=== PATIENT | male | born 1980 | race Hispanic/Latino ===

== ENCOUNTER 2018-10-07 17:55 | Inpatient (IN) | payer SELFPAY ==
[2018-10-07] MEDS ORDERED: ATIVAN IM ONE (18:30)
[2018-10-07 18:34] LABS: Basophils # (Auto) 0.1 K/mm3 (0.0-0.1); Basophils % (Auto) 0.9 % (0.0-1.8); Eosinophils # (Auto) 0.1 K/mm3 (0.0-0.4); Eosinophils % (Auto) 0.5 % (0.0-4.3); Hematocrit 48.5 % (35.5-45.6); Hemoglobin 16.2 gm/dl (11.8-15.2); Lymphocytes # (Auto) 2.7 K/mm3 (1.2-5.4); Lymphocytes % (Auto) 23.9 % (13.4-35.0); Mean Corpuscular HGB Conc 33 % (32-34); Mean Corpuscular Volume 88 fl (84-94); Monocytes # (Auto) 0.9 K/mm3 (0.0-0.8); Monocytes % (Auto) 7.9 % (0.0-7.3); Red Blood Count 5.49 M/mm3 (3.65-5.03); Red Cell Distribution Width 14.2 % (13.2-15.2)
[2018-10-07] MEDS ORDERED: ATIVAN ONE (18:47)
[2018-10-07 18:48] LABS: BUN/Creatinine Ratio 15; Blood Urea Nitrogen 18 mg/dL (9-20); Calcium 9.9 mg/dL (8.4-10.2); Hemolysis Index 29
[2018-10-07 19:23] LABS: Platelet Count 358 K/mm3 (140-440)
[2018-10-07] MEDS ORDERED: GEODON IM ONE (19:43)
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
[2018-10-07 20:25] LABS: Bilirubin,Urine NEG (Negative); Blood,Urine SM (Negative); Color,Urine Amber (Yellow); Hyaline Casts,Urine 1 /LPF; Mucus,Urine 2+ /HPF
[2018-10-07 20:31] LABS: Amphetamine Screen,Urine PRESUMPTIVE NEGATIVE; Benzodiazepines Screen,Urine PRESUMPTIVE NEGATIVE; Methadone Screen,Urine PRESUMPTIVE NEGATIVE; Opiate Screen,Urine PRESUMPTIVE NEGATIVE
[2018-10-07 20:50] LABS: Cannabinoid Screen,Urine PRESUMPTIVE POSITIVE; Cocaine Screen,Urine PRESUMPTIVE POSITIVE
[2018-10-08] MEDS: THORAZINE IM PRN ×2 (10:47→23:26)
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
[2018-10-08 13:45] LABS: Alanine Aminotransferase 43 units/L (7-56)
[2018-10-08] MEDS: BUSPAR PO SCH ×2 (14:30→22:29)
[2018-10-08] MEDS ORDERED: CATAPRES PO ONE (20:22)
[2018-10-09] MEDS ORDERED: NORVASC PO ONE (01:22)
[2018-10-09] MEDS: IBUPROFEN PO PRN ×2 (01:40→11:06)
[2018-10-09] MEDS ORDERED: ATIVAN IM ONE ×3 (04:02→20:38)
[2018-10-09] MEDS ORDERED: ATIVAN ONE ×3 (04:04→20:34)
[2018-10-09] MEDS ORDERED: GEODON IM ONE ×2 (04:04→20:35)
[2018-10-09] MEDS ORDERED: BENADRYL IM ONE (04:04)
[2018-10-09] MEDS ORDERED: WATER FOR INJ (PF) ONE (04:05)
[2018-10-09] MEDS ORDERED: BENADRYL ONE ×2 (04:07→20:34)
--- NOTE | 2018-10-09 05:20 | Emergency Department Report ---
Blank Doc - Documentation Documentation: Patient agitated, yelling, screaming, banging head against the wall. Patient given sedation with Ativan and Benadryl. Geodon held due to interaction on Thorazine. Patient placed in soft restraints.
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
[2018-10-09] MEDS: BUSPAR PO SCH ×2 (11:06→22:24)
[2018-10-09] MEDS: THORAZINE IM PRN ×2 (11:43→19:42)
[2018-10-09] MEDS ORDERED: THORAZINE IM ONE ×3 (20:38→21:21)
--- NOTE | 2018-10-09 20:44 | Event Note ---
Date: 10/09/18 Patient became acutely agitated and yelling ends screaming. Patient is already in the isolation room. Patient remained in the isolation room. [id number] done. Patient is kicking the door and punching a window. Patient is unable to be redirected in order to calm down. Patient will be given medications. Thorazine 50 mg IM ordered as well as Ativan 2 mg. We'll continue to monitor patient and change treatment as needed.
[2018-10-10] MEDS ORDERED: ATIVAN ONE (03:55)
[2018-10-10] MEDS ORDERED: THORAZINE IM ONE (03:58)
[2018-10-10] MEDS ORDERED: ATIVAN IM ONE (03:58)
[2018-10-10] MEDS ORDERED: GEODON IM ONE (07:50)
[2018-10-10] MEDS ORDERED: NACL 0.9% 1000 ML 1,000 ML IV ONE ×3 (07:51→12:56)
[2018-10-10] MEDS ORDERED: WATER FOR INJ (PF) ONE (07:59)
--- NOTE | 2018-10-10 08:29 | XRay Report ---
FINAL REPORT EXAM: XR CHEST 1V AP HISTORY: hypertension TECHNIQUE: AP portable view(s) of the chest obtained. PRIORS: None. FINDINGS: No mediastinal shift. Cardiac silhouette is not enlarged. No pneumothorax, effusion, or focal pulmona ry opacity identified. No acute skeletal findings. IMPRESSION: No acute pulmonary finding identified.
--- NOTE | 2018-10-10 08:30 | Cat Scan Report ---
FINAL REPORT EXAM: CT HEAD/BRAIN WO CON HISTORY: AMS TECHNIQUE: CT imaging acquired through the head without intravenous contrast. Transaxial reformatio ns are provided. PRIORS: None. FINDINGS: The ventricles, cisterns and sulci are normal. No intraparenchymal or extra-axial mass, hemorrhage, o r mass effect. Reyes and white-matter differentiation is normal. Normal spherical shape of the globes. Paranasal disease is present including complete opacification o f the frontal and left maxillary sinuses. No skull or facial fracture visualized. IMPRESSION: No acute intracranial abnormality. Paranasal sinus disease including complete opacification of the frontal and left maxillary sinuses.
[2018-10-10 09:11] LABS: INR 0.84 (0.87-1.13)
[2018-10-10 09:12] LABS: Partial Thromboplastin Time 26.1 Sec. (24.2-36.6)
[2018-10-10 09:16] LABS: BUN/Creatinine Ratio 11; Blood Urea Nitrogen 9 mg/dL (9-20); Hemolysis Index 12
[2018-10-10 09:17] LABS: Creatine Kinase MB 24.2 ng/mL (0.0-4.0)
[2018-10-10 09:19] LABS: Alanine Aminotransferase 52 units/L (7-56); Albumin 4.2 g/dL (3.9-5)
[2018-10-10 09:23] LABS: Free T4 (Free Thyroxine) 1.54 ng/dL (0.76-1.46)
[2018-10-10 09:26] LABS: Bilirubin,Direct < 0.2 mg/dL (0-0.2)
[2018-10-10 09:35] LABS: Basophils % (Auto) 0.8 % (0.0-1.8); Eosinophils # (Auto) 0.1 K/mm3 (0.0-0.4); Eosinophils % (Auto) 1.4 % (0.0-4.3); Hematocrit 42.3 % (35.5-45.6); Hemoglobin 14.5 gm/dl (11.8-15.2); Lymphocytes # (Auto) 1.5 K/mm3 (1.2-5.4); Lymphocytes % (Auto) 23.7 % (13.4-35.0); Mean Corpuscular HGB Conc 34 % (32-34); Mean Corpuscular Volume 87 fl (84-94); Monocytes # (Auto) 0.4 K/mm3 (0.0-0.8); Monocytes % (Auto) 7.2 % (0.0-7.3); Platelet Count 278 K/mm3 (140-440); Red Blood Count 4.89 M/mm3 (3.65-5.03); Red Cell Distribution Width 13.9 % (13.2-15.2)
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
[2018-10-10] MEDS: BUSPAR PO SCH ×2 (10:00→22:04)
[2018-10-10] MEDS ORDERED: NACL 0.9% 1000 ML 1,000 ML ONE (12:48)
--- NOTE | 2018-10-10 12:55 | History and Physical Report ---
History of Present Illness Date of admission: 10/10/18 12:32 Chief complaint: Im sick brother History of present illness: 38 YO Male with Polysubstance Abuse, Nicotine Dependence, HTN, Bipolar, Schizophrenia, DJD presents to ED for evaluation. PT is confused and exhibits tangential thinking and in unable to provide detailed history. Pt history taken from medical record, and ED staff. As per staff, the patient was transported to [facility] by law Enforcement for evaluation. The patient was observed by his roommate to be confrontational, confused, having hallucinations. Police were notified, an d upon arrival the patient was deemed to be a mental health patient, as was transported to [facility]. Pt seen and evaluated in ED and found to have Psychosis. Mental Health consulted. 1013 placed. Pt boarded in ED, and was subsequently found to have Rhabdomyolysis upon subsequent exam. Pt admitted to medical floor. Psychiatry consulted in ED. No further history obtainable. Past History Past Medical History: hyperthyroidism, other (DJD, PSA, Bipolar, Schizophrenia, ) Past Surgical History: No surgical history, Other Social history: smoking, other (Polysubstance Abuse) Family history: hypertension Medications and Allergies Allergies Allergy/AdvReac Type Severity Reaction Status Date / Time haloperidol [From Haldol] Allergy Hives Verified 10/07/18 19:38 Home Medications Medication Instructions Recorded Confirmed Last Taken Type cloNIDine [Catapres] 0.1 mg PO DAILY 10/07/18 10/07/18 Unknown History Active Meds: Active Medications Buspirone HCl (Buspar) 7.5 mg PO BID [facility] Last Admin: 10/09/18 22:24 Dose: Not Given Documented by: Chlorpromazine HCl (Thorazine) 25 mg IM Q6H PRN PRN Reason: Agitation Last Admin: 10/09/18 19:42 Dose: 25 mg Documented by: Sodium Chloride (Nacl 0.9% 1000 Ml) 1,000 mls @ 999 mls/hr IV BOLUS ONE Stop: 10/10/18 13:00 Ibuprofen (Motrin) 800 mg PO Q8H PRN PRN Reason: Pain , Severe (7-10) Last Admin: 10/09/18 11:06 Dose: 800 mg Documented by: Olanzapine (Zyprexa) 5 mg PO BID [facility] Last Admin: 10/09/18 22:24 Dose: Not Given Documented by: Review of Systems ROS unobtainable: due to mental status Exam - Constitutional Vitals: Temp Pulse Resp BP Pulse Ox 98 F 107 H 20 148/96 96 10/09/18 20:30 10/09/18 20:30 10/09/18 20:30 10/09/18 20:30 10/09/18 20:30 General appearance: Present: mild distress, obese - EENT Eyes: Present: PERRL ENT: hearing intact, clear oral mucosa - Neck Neck: Present: supple, normal ROM - Respiratory Respiratory effort: normal Respiratory: bilateral: CTA - Cardiovascular Heart Sounds: Present: S1 & S2. Absent: rub, click - Extremities Extremities: pulses symmetrical, No edema Peripheral Pulses: within normal limits - Abdominal General gastrointestinal: Present: soft, non-tender, non-distended, normal bowel sounds Male genitourinary: Present: normal - Integumentary Integumentary: Present: clear, warm, dry - Musculoskeletal Musculoskeletal: gait normal, strength equal bilaterally - Psychiatric Psychiatric: no memory intact, cooperative, agitated - Neurologic Neurologic: CNII-XII intact, moves all extremities Results - Labs CBC & Chem 7: 10/10/18 08:22 10/10/18 08:22 Labs: Abnormal lab results 10/10/18 10/10/18 10/10/18 Range/Units 08:22 08:22 08:22 PT 11.9 L (12.2-14.9) Sec. INR 0.84 L (0.87-1.13) Potassium 3.4 L (3.6-5.0) mmol/L Glucose 124 H (75-100) mg/dL AST 110 H (5-40) units/L Total Creatine Kinase 4604 H (55-170) units/L CK-MB (CK-2) 24.2 H (0.0-4.0) ng/mL Free T4 (0.76-1.46) ng/dL Acetaminophen (10.0-30.0) ug/mL 10/10/18 10/10/18 Range/Units 08:22 08:22 PT (12.2-14.9) Sec. INR (0.87-1.13) Potassium (3.6-5.0) mmol/L Glucose (75-100) mg/dL AST (5-40) units/L Total Creatine Kinase (55-170) units/L CK-MB (CK-2) (0.0-4.0) ng/mL Free T4 1.54 H (0.76-1.46) ng/dL Acetaminophen < 5.0 L (10.0-30.0) ug/mL Assessment and Plan - Patient Problems (1) Rhabdomyolysis Current Visit: Yes Status: Acute Qualifiers: Encounter type: initial encounter Plan to address problem: IVF resuscitation, monitor uop q shift, IV bicarbonate, repeat bmp, repeat CK level, (2) Polysubstance (excluding opioids) dependence Current Visit: Yes Status: Acute Plan to address problem: Supportive care, symptoms management, antiemetic therapy, diet as tolerated. (3) Acute psychosis Current Visit: Yes Status: Acute Plan to address problem: mental health consulted, continue current therapy as per psych recommendations. (4) Nicotine dependence with withdrawal Current Visit: Yes Status: Acute Qualifiers: Nicotine product type: cigarettes Qualified Code(s): F17.213 - Nicotine dependence, cigarettes, with withdrawal Plan to address problem: nicotine transdermal patch, supportive care. (5) Bipolar 1 disorder with moderate rick Current Visit: Yes Status: Acute Plan to address problem: psychiatry consulted, continue medical management (6) DVT prophylaxis Current Visit: Yes Status: Acute Plan to address problem: SCD to BLE while in bed.
[2018-10-10] MEDS ORDERED: SODIUM CHLORIDE FLUSH SYRINGE 10 ML IV PRN (13:02)
[2018-10-10] MEDS ORDERED: ZOFRAN IV PRN (13:02)
[2018-10-10] MEDS ORDERED: PROVENTIL IH PRN (13:02)
[2018-10-10] MEDS: HABITROL TD SCH (17:00)
[2018-10-10] MEDS ORDERED: IBUPROFEN ONE (18:07)
[2018-10-10] MEDS: IBUPROFEN PO PRN (18:08)
[2018-10-10] MEDS: SODIUM CHLORIDE FLUSH SYRINGE 10 ML IV SCH (22:04)
[2018-10-10] MEDS: NACL 0.9% 1000 ML 1,000 ML IV SCH (22:13)
[2018-10-11] MEDS: LIDODERM 5% TD SCH ×2 (00:59→21:30)
[2018-10-11] MEDS: PEPCID PO SCH ×3 (01:55→21:30)
[2018-10-11] MEDS: IBUPROFEN PO PRN ×2 (03:24→11:13)
[2018-10-11] MEDS: ATIVAN IV PRN ×4 (04:13→21:30)
[2018-10-11] MEDS: HABITROL TD SCH (09:33)
[2018-10-11] MEDS: BUSPAR PO SCH ×2 (09:33→21:30)
[2018-10-11] MEDS: CATAPRES PO SCH (09:35)
[2018-10-11] MEDS: SODIUM CHLORIDE FLUSH SYRINGE 10 ML IV SCH ×2 (09:36→23:02)
[2018-10-11 10:40] LABS: BUN/Creatinine Ratio 10; Blood Urea Nitrogen 7 mg/dL (9-20); Calcium 8.6 mg/dL (8.4-10.2); Hemolysis Index 4
--- NOTE | 2018-10-11 18:41 | Progress Note ---
Assessment and Plan Assessment and plan: --Rhabdomyolysis; Vigorous IV hydration, closely monitor renal function and CK levels Input and output monitoring --Acute psychosis; management per psychiatric 1013 status/safety spec --Polysubstance abuse; supportive care Watch for withdrawal symptoms, patient adv drug rehabilitation once medically stable --Tobacco use; smoking cessation advised, nicotine patch as needed --Bipolar disorder; management per psychiatric, side following --DVT prophylaxis; SCDs -- 1013 --Disposition; patient will be transferred to inpatient psych when medically stable Plan of care reviewed with the patient's nurse and case management History Interval history: Patient seen and examined medical records reviewed Patient is admitted with acute psychosis, rhabdomyolysis, 1013 status Patient patient is agitated, aggressive, had to call security At the time of my evaluation patient is calm and quiet Vital signs reviewed Patient has no complaints Hospitalist Physical - Constitutional Vitals: Temp Pulse Resp BP Pulse Ox 97.1 F L 95 H 20 165/76 96 10/11/18 12:00 10/11/18 12:00 10/11/18 12:00 10/11/18 12:00 10/11/18 12:15 General appearance: Present: mild distress, obese, other (agitated) - EENT Eyes: Present: PERRL, EOM intact - Neck Neck: Present: supple, normal ROM - Respiratory Respiratory effort: normal Respiratory: negative: rales, rhonchi, wheezing - Cardiovascular Rhythm: regular Heart Sounds: Present: S1 & S2 - Extremities Extremities: no ischemia, pulses intact - Abdominal General gastrointestinal: soft, non-tender, non-distended, normal bowel sounds - Integumentary Integumentary: Present: clear, warm - Psychiatric Psychiatric: agitated, other (sometimes aggressive) - Neurologic Neurologic: moves all extremities Results - Labs CBC & Chem 7: 10/10/18 08:22 10/11/18 09:51 Labs: Laboratory Last Values WBC 6.1 K/mm3 (4.5-11.0) 10/10/18 08:22 RBC 4.89 M/mm3 (3.65-5.03) 10/10/18 08:22 Hgb 14.5 gm/dl (11.8-15.2) 10/10/18 08:22 Hct 42.3 % (35.5-45.6) D 10/10/18 08:22 MCV 87 fl (84-94) 10/10/18 08:22 MCH 30 pg (28-32) 10/10/18 08:22 MCHC 34 % (32-34) 10/10/18 08:22 RDW 13.9 % (13.2-15.2) 10/10/18 08:22 Plt Count 278 K/mm3 (140-440) 10/10/18 08:22 Lymph % (Auto) 23.7 % (13.4-35.0) 10/10/18 08:22 [place] % (Auto) 7.2 % (0.0-7.3) 10/10/18 08:22 Eos % (Auto) 1.4 % (0.0-4.3) 10/10/18 08:22 Baso % (Auto) 0.8 % (0.0-1.8) 10/10/18 08:22 Lymph # 1.5 K/mm3 (1.2-5.4) 10/10/18 08:22 [place] # 0.4 K/mm3 (0.0-0.8) 10/10/18 08:22 Eos # 0.1 K/mm3 (0.0-0.4) 10/10/18 08:22 Baso # 0.0 K/mm3 (0.0-0.1) 10/10/18 08:22 Seg Neutrophils % 66.9 % (40.0-70.0) 10/10/18 08:22 Seg Neutrophils # 4.1 K/mm3 (1.8-7.7) 10/10/18 08:22 PT 11.9 Sec. (12.2-14.9) L 10/10/18 08:22 INR 0.84 (0.87-1.13) L 10/10/18 08:22 APTT 26.1 Sec. (24.2-36.6) 10/10/18 08:22 Sodium 143 mmol/L (137-145) 10/11/18 09:51 Potassium 4.3 mmol/L (3.6-5.0) D 10/11/18 09:51 Chloride 107.4 mmol/L (98-107) H 10/11/18 09:51 Carbon Dioxide 23 mmol/L (22-30) 10/11/18 09:51 Anion Gap 17 mmol/L 10/11/18 09:51 BUN 7 mg/dL (9-20) L 10/11/18 09:51 Creatinine 0.7 mg/dL (0.8-1.5) L 10/11/18 09:51 Estimated GFR > 60 ml/min 10/11/18 09:51 BUN/Creatinine Ratio 10 % 10/11/18 09:51 Glucose 113 mg/dL (75-100) H 10/11/18 09:51 Calcium 8.6 mg/dL (8.4-10.2) 10/11/18 09:51 Magnesium 2.20 mg/dL (1.7-2.3) 10/10/18 08:22 Total Bilirubin 0.80 mg/dL (0.1-1.2) 10/10/18 08:22 Direct Bilirubin < 0.2 mg/dL (0-0.2) 10/10/18 08:22 Indirect Bilirubin 0.6 mg/dL 10/10/18 08:22 AST 110 units/L (5-40) H 10/10/18 08:22 ALT 52 units/L (7-56) 10/10/18 08:22 Alkaline Phosphatase 68 units/L (35-129) 10/10/18 08:22 Total Creatine Kinase 2494 units/L (55-170) H 10/11/18 09:51 CK-MB (CK-2) 24.2 ng/mL (0.0-4.0) H 10/10/18 08:22 CK-MB (CK-2) Rel Index 0.5 (0-4) 10/10/18 08:22 Troponin T < 0.010 ng/mL (0.00-0.029) 10/10/18 08:22 NT-Pro-B Natriuret Pep 83.40 pg/mL (0-450) 10/10/18 08:22 Total Protein 6.9 g/dL (6.3-8.2) 10/10/18 08:22 Albumin 4.2 g/dL (3.9-5) 10/10/18 08:22 Albumin/Globulin Ratio 1.6 % 10/10/18 08:22 Amylase 41 units/L (27-131) 10/08/18 13:12 Lipase 45 units/L (13-60) 10/08/18 13:12 TSH 1.010 mlU/mL (0.270-4.200) 10/10/18 08:22 Free T4 1.54 ng/dL (0.76-1.46) H 10/10/18 08:22 Urine Color [place] (Yellow) 10/07/18 20:15 Urine Turbidity Slightly-cloudy (Clear) 10/07/18 20:15 Urine pH 5.0 (5.0-7.0) 10/07/18 20:15 Ur Specific [place] 1.030 (1.003-1.030) 10/07/18 20:15 Urine Protein 30 mg/dl mg/dL (Negative) 10/07/18 20:15 Urine Glucose (UA) Neg mg/dL (Negative) 10/07/18 20:15 Urine Ketones Neg mg/dL (Negative) 10/07/18 20:15 Urine Blood Sm (Negative) 10/07/18 20:15 Urine Nitrite Neg (Negative) 10/07/18 20:15 Urine Bilirubin Neg (Negative) 10/07/18 20:15 Urine Urobilinogen 2.0 mg/dL (<2.0) 10/07/18 20:15 Ur Leukocyte Esterase Neg (Negative) 10/07/18 20:15 Urine WBC (Auto) 2.0 /HPF (0.0-6.0) 10/07/18 20:15 Urine RBC (Auto) 14.0 /HPF (0.0-6.0) 10/07/18 20:15 U Epithel Cells (Auto) < 1.0 /HPF (0-13.0) 10/07/18 20:15 Hyaline Casts 1 /LPF 10/07/18 20:15 Urine Mucus 2+ /HPF 10/07/18 20:15 Salicylates 7.7 mg/dL (2.8-20.0) 10/07/18 Unknown Urine Opiates Screen Presumptive negative 10/07/18 20:15 Urine Methadone Screen Presumptive negative 10/07/18 20:15 Acetaminophen < 5.0 ug/mL (10.0-30.0) L 10/10/18 08:22 Ur Barbiturates Screen Presumptive negative 10/07/18 20:15 Valproic Acid < 2.8 ug/mL (50-100) L 10/08/18 13:12 Ur Phencyclidine Scrn Presumptive negative 10/07/18 20:15 Ur Amphetamines Screen Presumptive negative 10/07/18 20:15 U Benzodiazepines Scrn Presumptive negative 10/07/18 20:15 Urine Cocaine Screen Presumptive positive 10/07/18 20:15 U Marijuana (THC) Screen Presumptive positive 10/07/18 20:15 Drugs of Abuse Note Disclamer 10/07/18 20:15 Plasma/Serum Alcohol < 0.01 % (0-0.07) 10/07/18 18:19 Nutrition/Malnutrition Assess - Dietary Evaluation Nutrition/Malnutrition Findings: Nutrition Notes Start: 10/11/18 15:31 Freq: Status: Active Protocol: Document 10/11/18 15:31 RM (Rec: 10/11/18 15:37 RM [id number]) Nutrition Notes Need for Assessment generated from: relay technician MST Initial or Follow up Brief Note Current Diagnosis Hypertension Other Pertinent Diagnosis Polysubstance abuse, Bipolar, Schizophrenia, hyperthyroidism , DJD Current Diet Regular Labs/Tests Reviewed Pertinent Medications Reviewed Height 6 ft Weight 146 kg [place] Body Weight (kg) 80.90 BMI 43.6 Subjective/Other Information Screened for malnutrition. Pt agitated,cursing, and yelling per nurse note 10/11/18 . Pt tech stated that pt eats 100% of his meals. Burn Absent Trauma Absent Nutrition Intervention Follow-Up By: 10/13/18 Additional Comments Follow for confirmation of intakes/stable intakes
[2018-10-12] MEDS: IBUPROFEN PO PRN (03:49)
[2018-10-12] MEDS: ATIVAN IV PRN ×3 (06:36→21:10)
[2018-10-12] MEDS: NACL 0.9% 1000 ML 1,000 ML IV SCH ×3 (09:41→23:12)
[2018-10-12] MEDS: BUSPAR PO SCH (09:42)
[2018-10-12] MEDS: HABITROL TD SCH (09:43)
[2018-10-12] MEDS: PEPCID PO SCH ×2 (09:45→21:10)
[2018-10-12] MEDS: CATAPRES PO SCH (09:45)
[2018-10-12] MEDS: SODIUM CHLORIDE FLUSH SYRINGE 10 ML IV SCH ×2 (09:52→21:11)
--- NOTE | 2018-10-12 10:07 | Progress Note ---
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 --Polysubstance abuse; supportive care Monitor for withdrawal symptoms, patient needs drug rehabilitation once medically stable --Tobacco use; smoking cessation advised, nicotine patch as needed --Bipolar disorder; management per psychiatric, side following --DVT prophylaxis; SCDs -- 1013 Patient is medically stable for discharge Disposition per psych, possible transfer to inpatient psych facility for further evaluation and management History Interval history: Patient seen and examined medical records reviewed No new events reported by the nursing Patient is calm and quiet sleeping No agitation or aggression 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 Vital signs noted Hospitalist Physical - Constitutional Vitals: Temp Pulse Resp BP Pulse Ox 98.5 F 84 18 131/76 97 10/12/18 05:20 10/12/18 09:45 10/12/18 05:20 10/12/18 09:45 10/12/18 05:20 General appearance: Present: no acute distress, obese, other (agitated) - EENT Eyes: Present: PERRL, EOM intact - Neck Neck: Present: supple, normal ROM - Respiratory Respiratory effort: normal Respiratory: bilateral: diminished, rales, negative: rhonchi, wheezing - Cardiovascular Rhythm: regular Heart Sounds: Present: S1 & S2 - Extremities Extremities: no ischemia, No edema - Abdominal General gastrointestinal: soft, non-tender, non-distended, normal bowel sounds - Integumentary Integumentary: Present: clear, warm - Psychiatric Psychiatric: appropriate mood/affect, cooperative - Neurologic Neurologic: moves all extremities Results - Labs CBC & Chem 7: 10/10/18 08:22 10/11/18 09:51 Labs: Laboratory Last Values WBC 6.1 K/mm3 (4.5-11.0) 10/10/18 08:22 RBC 4.89 M/mm3 (3.65-5.03) 10/10/18 08:22 Hgb 14.5 gm/dl (11.8-15.2) 10/10/18 08:22 Hct 42.3 % (35.5-45.6) D 10/10/18 08:22 MCV 87 fl (84-94) 10/10/18 08:22 MCH 30 pg (28-32) 10/10/18 08:22 MCHC 34 % (32-34) 10/10/18 08:22 RDW 13.9 % (13.2-15.2) 10/10/18 08:22 Plt Count 278 K/mm3 (140-440) 10/10/18 08:22 Lymph % (Auto) 23.7 % (13.4-35.0) 10/10/18 08:22 [place] % (Auto) 7.2 % (0.0-7.3) 10/10/18 08:22 Eos % (Auto) 1.4 % (0.0-4.3) 10/10/18 08:22 Baso % (Auto) 0.8 % (0.0-1.8) 10/10/18 08:22 Lymph # 1.5 K/mm3 (1.2-5.4) 10/10/18 08:22 [place] # 0.4 K/mm3 (0.0-0.8) 10/10/18 08:22 Eos # 0.1 K/mm3 (0.0-0.4) 10/10/18 08:22 Baso # 0.0 K/mm3 (0.0-0.1) 10/10/18 08:22 Seg Neutrophils % 66.9 % (40.0-70.0) 10/10/18 08:22 Seg Neutrophils # 4.1 K/mm3 (1.8-7.7) 10/10/18 08:22 PT 11.9 Sec. (12.2-14.9) L 10/10/18 08:22 INR 0.84 (0.87-1.13) L 10/10/18 08:22 APTT 26.1 Sec. (24.2-36.6) 10/10/18 08:22 Sodium 143 mmol/L (137-145) 10/11/18 09:51 Potassium 4.3 mmol/L (3.6-5.0) D 10/11/18 09:51 Chloride 107.4 mmol/L (98-107) H 10/11/18 09:51 Carbon Dioxide 23 mmol/L (22-30) 10/11/18 09:51 Anion Gap 17 mmol/L 10/11/18 09:51 BUN 7 mg/dL (9-20) L 10/11/18 09:51 Creatinine 0.7 mg/dL (0.8-1.5) L 10/11/18 09:51 Estimated GFR > 60 ml/min 10/11/18 09:51 BUN/Creatinine Ratio 10 % 10/11/18 09:51 Glucose 113 mg/dL (75-100) H 10/11/18 09:51 Calcium 8.6 mg/dL (8.4-10.2) 10/11/18 09:51 Magnesium 2.20 mg/dL (1.7-2.3) 10/10/18 08:22 Total Bilirubin 0.80 mg/dL (0.1-1.2) 10/10/18 08:22 Direct Bilirubin < 0.2 mg/dL (0-0.2) 10/10/18 08:22 Indirect Bilirubin 0.6 mg/dL 10/10/18 08:22 AST 110 units/L (5-40) H 10/10/18 08:22 ALT 52 units/L (7-56) 10/10/18 08:22 Alkaline Phosphatase 68 units/L (35-129) 10/10/18 08:22 Total Creatine Kinase 1110 units/L (55-170) H 10/12/18 08:28 CK-MB (CK-2) 24.2 ng/mL (0.0-4.0) H 10/10/18 08:22 CK-MB (CK-2) Rel Index 0.5 (0-4) 10/10/18 08:22 Troponin T < 0.010 ng/mL (0.00-0.029) 10/10/18 08:22 NT-Pro-B Natriuret Pep 83.40 pg/mL (0-450) 10/10/18 08:22 Total Protein 6.9 g/dL (6.3-8.2) 10/10/18 08:22 Albumin 4.2 g/dL (3.9-5) 10/10/18 08:22 Albumin/Globulin Ratio 1.6 % 10/10/18 08:22 Amylase 41 units/L (27-131) 10/08/18 13:12 Lipase 45 units/L (13-60) 10/08/18 13:12 TSH 1.010 mlU/mL (0.270-4.200) 10/10/18 08:22 Free T4 1.54 ng/dL (0.76-1.46) H 10/10/18 08:22 Urine Color [place] (Yellow) 10/07/18 20:15 Urine Turbidity Slightly-cloudy (Clear) 10/07/18 20:15 Urine pH 5.0 (5.0-7.0) 10/07/18 20:15 Ur Specific [place] 1.030 (1.003-1.030) 10/07/18 20:15 Urine Protein 30 mg/dl mg/dL (Negative) 10/07/18 20:15 Urine Glucose (UA) Neg mg/dL (Negative) 10/07/18 20:15 Urine Ketones Neg mg/dL (Negative) 10/07/18 20:15 Urine Blood Sm (Negative) 10/07/18 20:15 Urine Nitrite Neg (Negative) 10/07/18 20:15 Urine Bilirubin Neg (Negative) 10/07/18 20:15 Urine Urobilinogen 2.0 mg/dL (<2.0) 10/07/18 20:15 Ur Leukocyte Esterase Neg (Negative) 10/07/18 20:15 Urine WBC (Auto) 2.0 /HPF (0.0-6.0) 10/07/18 20:15 Urine RBC (Auto) 14.0 /HPF (0.0-6.0) 10/07/18 20:15 U Epithel Cells (Auto) < 1.0 /HPF (0-13.0) 10/07/18 20:15 Hyaline Casts 1 /LPF 10/07/18 20:15 Urine Mucus 2+ /HPF 10/07/18 20:15 Salicylates 7.7 mg/dL (2.8-20.0) 10/07/18 Unknown Urine Opiates Screen Presumptive negative 10/07/18 20:15 Urine Methadone Screen Presumptive negative 10/07/18 20:15 Acetaminophen < 5.0 ug/mL (10.0-30.0) L 10/10/18 08:22 Ur Barbiturates Screen Presumptive negative 10/07/18 20:15 Valproic Acid < 2.8 ug/mL (50-100) L 10/08/18 13:12 Ur Phencyclidine Scrn Presumptive negative 10/07/18 20:15 Ur Amphetamines Screen Presumptive negative 10/07/18 20:15 U Benzodiazepines Scrn Presumptive negative 10/07/18 20:15 Urine Cocaine Screen Presumptive positive 10/07/18 20:15 U Marijuana (THC) Screen Presumptive positive 10/07/18 20:15 Drugs of Abuse Note Disclamer 10/07/18 20:15 Plasma/Serum Alcohol < 0.01 % (0-0.07) 10/07/18 18:19 Nutrition/Malnutrition Assess - Dietary Evaluation Nutrition/Malnutrition Findings: Nutrition Notes Start: 10/11/18 15:31 Freq: Status: Active Protocol: Document 10/11/18 15:31 RM (Rec: 10/11/18 15:37 RM [id number]) Nutrition Notes Need for Assessment 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 Pt agitated,cursing, and yelling per nurse note 10/11/18 . Pt tech stated that pt eats 100% of his meals. Burn Absent Trauma Absent Nutrition Intervention Follow-Up By: 10/13/18 Additional Comments Follow for confirmation of intakes/stable intakes
--- NOTE | 2018-10-12 12:56 | Progress Note ---
Subjective - Reason for Consult Consult date: 10/12/18 Reason for consult: Psychiatry Follow-up - Chief Complaint Chief complaint: "I need to speak with everyone" 38-year-old male presents to the emergency department via police from his home for a mental health evaluation. Today the patient is tangent during the assessment. He continues to be hyper religion and his answers to questions are not logical. He denies SI/HI's and AVH's. No indications of side effects of medications. Mental Status Exam - Vital signs Last Vital Signs Temp 97.7 F 10/12/18 12:45 Pulse 84 10/12/18 12:45 Resp 20 10/12/18 12:45 BP 136/69 10/12/18 12:45 Pulse Ox 100 10/12/18 12:45 - Exam Narrative exam: MSE: Appearance: in a hospital gown Behavior: regular eye contact Speech: hyper verbal Mood: "okay" Affect: congruent to mood Thought Process: tangential Thought Content: denies SI/Hi's, delusional, hyper religion Motor Activity: sitting up in bed Cognition: A/O x 3 Insight: poor Judgment: poor Impression: Unspecified Mood DO with psy features. Substance Use DO (cocaine). Cannabis Use DO. Today the patient is calm, but still disorganized during the assessment. The patient is i n restraints. DDx: Bipolar DO with psychosis, Schizoaffective DO, Substance Induced M ood/Psychotic DO, R/O Anxiety DO. Recommendation/Plan: Continue 1013, Klonpin 0.5 mg PO BID for anxiety and start Zyprexa 5 mg PO BID for psychosis/mood. Attempted to discuss possible metabolic side effects of Zyprexa with the patient. Dispo: The patient will be referred to inpatient psy services once medically clear. Will staff with Dr Radha Paredes.
[2018-10-12] MEDS: LIDODERM 5% TD SCH (21:10)
[2018-10-13] MEDS: ATIVAN IV PRN ×4 (05:31→18:39)
[2018-10-13] MEDS: TYLENOL PO PRN ×2 (08:43→21:18)
[2018-10-13] MEDS: HABITROL TD SCH (10:52)
[2018-10-13] MEDS: CATAPRES PO SCH (10:52)
[2018-10-13] MEDS: PEPCID PO SCH ×2 (10:53→21:11)
[2018-10-13] MEDS: SODIUM CHLORIDE FLUSH SYRINGE 10 ML IV SCH ×2 (10:54→21:12)
--- NOTE | 2018-10-13 11:04 | Progress Note ---
Subjective - Reason for Consult Consult date: 10/13/18 Reason for consult: Psychiatry Follow-up - Chief Complaint Chief complaint: "I need to leave" 38-year-old male presents to the emergency department via police from his home for a mental health evaluation. Today the patient is irritable and disorganized during the assessment. He is adamant that his elevated CK is the reason he's a 1013 patient. I the provider explained to the patient why he is a 1013 patient he stated, "That's not true." The patient had to be redirected several times to keep him on topic, but was unsuccessful. No gestures of SI/HI's. No indications of side effects of medications. Mental Status Exam - Vital signs Last Vital Signs Temp 97.8 F 10/13/18 05:42 Pulse 85 10/13/18 10:52 Resp 20 10/13/18 08:50 BP 168/99 10/13/18 10:52 Pulse Ox 97 10/13/18 08:50 - Exam Narrative exam: MSE: Appearance: in a hospital gown Behavior: regular eye contact Speech: hyper verbal Mood: agitated Affect: congruent to mood Thought Process: tangential Thought Content: no gestures of SI/Hi's, delusional, hyper church Motor Activity: sitting up in bed Cognition: A/O x 3 Insight: poor Judgment: poor Assessment and Plan Impression: Unspecified Mood DO with psy features. Substance Use DO (cocaine). Cannabis Use DO. Today the patient is irritable and disorganized during the assessment. DDx: Bipolar DO with psychosis, Schizoaffective DO, Substance Induced Mood/Psychotic DO, R/O Anxiety DO. Recommendation/Plan: Continue 1013, Klonopin 0.5 mg PO BID for anxiety, and Zyprexa 5 mg PO BID for psychosis/mood. Attempted to discuss possible metabolic side effects of Zyprexa with the patient. Dispo: The patient will be referred to inpatient psy services once medically clear. Will staff with Dr Sidney Paredes.
--- NOTE | 2018-10-13 19:37 | Progress Note ---
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 --Polysubstance abuse; supportive care Monitor for withdrawal symptoms, patient needs drug rehabilitation once medically stable --Tobacco use; smoking cessation advised, nicotine patch as needed --Bipolar disorder; management per psychiatric, side following --DVT prophylaxis; SCDs -- 1013 Disposition per psych, possible transfer to inpatient psych facility for further evaluation and management Patient is medically cleared for discharge History Interval history: Patient seen and examined medical records reviewed Patient feels slightly better, CK level is in 400s Alert awake oriented 3, not in distress Vitals noted 1013 status Hospitalist Physical - Constitutional Vitals: Temp Pulse Resp BP Pulse Ox 98.7 F 99 H 18 159/92 96 10/13/18 14:00 10/13/18 14:07 10/13/18 14:00 10/13/18 14:00 10/13/18 14:07 General appearance: Present: no acute distress, obese, other (agitated) - EENT Eyes: Present: PERRL, EOM intact - Neck Neck: Present: supple, normal ROM - Respiratory Respiratory effort: normal Respiratory: negative: rales, rhonchi, wheezing - Cardiovascular Rhythm: regular Heart Sounds: Present: S1 & S2 - Extremities Extremities: no ischemia, No edema - Abdominal General gastrointestinal: soft, non-distended, normal bowel sounds - Integumentary Integumentary: Present: clear, warm - Psychiatric Psychiatric: appropriate mood/affect, cooperative, agitated (at times), other ( sometimes psychotic) - Neurologic Neurologic: moves all extremities Results - Labs CBC & Chem 7: 10/10/18 08:22 10/11/18 09:51 Labs: Laboratory Last Values WBC 6.1 K/mm3 (4.5-11.0) 10/10/18 08:22 RBC 4.89 M/mm3 (3.65-5.03) 10/10/18 08:22 Hgb 14.5 gm/dl (11.8-15.2) 10/10/18 08:22 Hct 42.3 % (35.5-45.6) D 10/10/18 08:22 MCV 87 fl (84-94) 10/10/18 08:22 MCH 30 pg (28-32) 10/10/18 08:22 MCHC 34 % (32-34) 10/10/18 08:22 RDW 13.9 % (13.2-15.2) 10/10/18 08:22 Plt Count 278 K/mm3 (140-440) 10/10/18 08:22 Lymph % (Auto) 23.7 % (13.4-35.0) 10/10/18 08:22 [place] % (Auto) 7.2 % (0.0-7.3) 10/10/18 08:22 Eos % (Auto) 1.4 % (0.0-4.3) 10/10/18 08:22 Baso % (Auto) 0.8 % (0.0-1.8) 10/10/18 08:22 Lymph # 1.5 K/mm3 (1.2-5.4) 10/10/18 08:22 [place] # 0.4 K/mm3 (0.0-0.8) 10/10/18 08:22 Eos # 0.1 K/mm3 (0.0-0.4) 10/10/18 08:22 Baso # 0.0 K/mm3 (0.0-0.1) 10/10/18 08:22 Seg Neutrophils % 66.9 % (40.0-70.0) 10/10/18 08:22 Seg Neutrophils # 4.1 K/mm3 (1.8-7.7) 10/10/18 08:22 PT 11.9 Sec. (12.2-14.9) L 10/10/18 08:22 INR 0.84 (0.87-1.13) L 10/10/18 08:22 APTT 26.1 Sec. (24.2-36.6) 10/10/18 08:22 Sodium 143 mmol/L (137-145) 10/11/18 09:51 Potassium 4.3 mmol/L (3.6-5.0) D 10/11/18 09:51 Chloride 107.4 mmol/L (98-107) H 10/11/18 09:51 Carbon Dioxide 23 mmol/L (22-30) 10/11/18 09:51 Anion Gap 17 mmol/L 10/11/18 09:51 BUN 7 mg/dL (9-20) L 10/11/18 09:51 Creatinine 0.7 mg/dL (0.8-1.5) L 10/11/18 09:51 Estimated GFR > 60 ml/min 10/11/18 09:51 BUN/Creatinine Ratio 10 % 10/11/18 09:51 Glucose 113 mg/dL (75-100) H 10/11/18 09:51 Calcium 8.6 mg/dL (8.4-10.2) 10/11/18 09:51 Magnesium 2.20 mg/dL (1.7-2.3) 10/10/18 08:22 Total Bilirubin 0.80 mg/dL (0.1-1.2) 10/10/18 08:22 Direct Bilirubin < 0.2 mg/dL (0-0.2) 10/10/18 08:22 Indirect Bilirubin 0.6 mg/dL 10/10/18 08:22 AST 110 units/L (5-40) H 10/10/18 08:22 ALT 52 units/L (7-56) 10/10/18 08:22 Alkaline Phosphatase 68 units/L (35-129) 10/10/18 08:22 Total Creatine Kinase 474 units/L (55-170) H 10/13/18 04:27 CK-MB (CK-2) 24.2 ng/mL (0.0-4.0) H 10/10/18 08:22 CK-MB (CK-2) Rel Index 0.5 (0-4) 10/10/18 08:22 Troponin T < 0.010 ng/mL (0.00-0.029) 10/10/18 08:22 NT-Pro-B Natriuret Pep 83.40 pg/mL (0-450) 10/10/18 08:22 Total Protein 6.9 g/dL (6.3-8.2) 10/10/18 08:22 Albumin 4.2 g/dL (3.9-5) 10/10/18 08:22 Albumin/Globulin Ratio 1.6 % 10/10/18 08:22 Amylase 41 units/L (27-131) 10/08/18 13:12 Lipase 45 units/L (13-60) 10/08/18 13:12 TSH 1.010 mlU/mL (0.270-4.200) 10/10/18 08:22 Free T4 1.54 ng/dL (0.76-1.46) H 10/10/18 08:22 Urine Color [place] (Yellow) 10/07/18 20:15 Urine Turbidity Slightly-cloudy (Clear) 10/07/18 20:15 Urine pH 5.0 (5.0-7.0) 10/07/18 20:15 Ur Specific [place] 1.030 (1.003-1.030) 10/07/18 20:15 Urine Protein 30 mg/dl mg/dL (Negative) 10/07/18 20:15 Urine Glucose (UA) Neg mg/dL (Negative) 10/07/18 20:15 Urine Ketones Neg mg/dL (Negative) 10/07/18 20:15 Urine Blood Sm (Negative) 10/07/18 20:15 Urine Nitrite Neg (Negative) 10/07/18 20:15 Urine Bilirubin Neg (Negative) 10/07/18 20:15 Urine Urobilinogen 2.0 mg/dL (<2.0) 10/07/18 20:15 Ur Leukocyte Esterase Neg (Negative) 10/07/18 20:15 Urine WBC (Auto) 2.0 /HPF (0.0-6.0) 10/07/18 20:15 Urine RBC (Auto) 14.0 /HPF (0.0-6.0) 10/07/18 20:15 U Epithel Cells (Auto) < 1.0 /HPF (0-13.0) 10/07/18 20:15 Hyaline Casts 1 /LPF 10/07/18 20:15 Urine Mucus 2+ /HPF 10/07/18 20:15 Salicylates 7.7 mg/dL (2.8-20.0) 10/07/18 Unknown Urine Opiates Screen Presumptive negative 10/07/18 20:15 Urine Methadone Screen Presumptive negative 10/07/18 20:15 Acetaminophen < 5.0 ug/mL (10.0-30.0) L 10/10/18 08:22 Ur Barbiturates Screen Presumptive negative 10/07/18 20:15 Valproic Acid < 2.8 ug/mL (50-100) L 10/08/18 13:12 Ur Phencyclidine Scrn Presumptive negative 10/07/18 20:15 Ur Amphetamines Screen Presumptive negative 10/07/18 20:15 U Benzodiazepines Scrn Presumptive negative 10/07/18 20:15 Urine Cocaine Screen Presumptive positive 10/07/18 20:15 U Marijuana (THC) Screen Presumptive positive 10/07/18 20:15 Drugs of Abuse Note Disclamer 10/07/18 20:15 Plasma/Serum Alcohol < 0.01 % (0-0.07) 10/07/18 18:19 Nutrition/Malnutrition Assess - Dietary Evaluation Nutrition/Malnutrition Findings: Nutrition Notes Start: 10/11/18 15:31 Freq: Status: Active Protocol: Document 10/13/18 12:32 ER (Rec: 10/13/18 12:36 ER [id number]) Co-Sign 10/13/18 12:32 LP Nutrition Notes Initial or Follow up Brief Note Current Diagnosis Hypertension Other Pertinent Diagnosis Polysubstance abuse, Bipolar, Schizophrenia, hyperthyroidism , DJD Current Diet Regular Labs/Tests Reviewed Pertinent Medications Reviewed Height 6 ft Weight 146 kg [place] Body Weight (kg) 80.90 BMI 43.6 Subjective/Other Information Pt. asking for doctor in hallway. Calmed pt. down and walked pt. back to room. Pt. denies any N/V/D/C or chewing/ swallowing difficulties. Pt. stated he is eating 100% of meals and that he "is a big mina and know how much food he needs to eat." Nutrition Intervention Revisit per MD consult or patient Sign Off request:
[2018-10-13] MEDS: LIDODERM 5% TD SCH (21:12)
[2018-10-14] MEDS: TYLENOL PO PRN ×2 (04:23→18:22)
[2018-10-14] MEDS: ATIVAN IV PRN ×4 (04:24→22:16)
[2018-10-14] MEDS: IBUPROFEN PO PRN ×3 (06:11→22:13)
--- NOTE | 2018-10-14 09:31 | Progress Note ---
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, patient is calm and quiet today --Polysubstance abuse; no withdrawal symptoms, patient needs drug rehabilitation outpatient --Tobacco use; smoking cessation advised, nicotine patch as needed --Bipolar disorder; management per psychiatric, --DVT prophylaxis; SCDs -- 1013 Disposition per psych, possible transfer to inpatient psych facility for further evaluation and management Patient is medically cleared for discharge History Interval history: Patient seen and examined medical records reviewed Patient is calm and quiet today, no agitation or aggression CK levels significantly improved to 274 Alert awake oriented 3 Vital signs noted Hospitalist Physical - Constitutional Vitals: Temp Pulse Resp BP Pulse Ox 98.7 F 99 H 18 159/92 96 10/13/18 14:00 10/13/18 14:07 10/13/18 14:00 10/13/18 14:00 10/13/18 14:07 General appearance: Present: no acute distress, obese, other (Nataliya.) - EENT Eyes: Present: PERRL - Neck Neck: Present: supple, normal ROM - Respiratory Respiratory effort: normal Respiratory: negative: rales, rhonchi, wheezing - Cardiovascular Rhythm: regular Heart Sounds: Present: S1 & S2 - Extremities Extremities: no ischemia, No edema - Abdominal General gastrointestinal: soft, non-tender, non-distended, normal bowel sounds - Integumentary Integumentary: Present: clear, warm - Psychiatric Psychiatric: appropriate mood/affect, cooperative - Neurologic Neurologic: CNII-XII intact, moves all extremities Results - Labs CBC & Chem 7: 10/10/18 08:22 10/11/18 09:51 Labs: Laboratory Last Values WBC 6.1 K/mm3 (4.5-11.0) 10/10/18 08:22 RBC 4.89 M/mm3 (3.65-5.03) 10/10/18 08:22 Hgb 14.5 gm/dl (11.8-15.2) 10/10/18 08:22 Hct 42.3 % (35.5-45.6) D 10/10/18 08:22 MCV 87 fl (84-94) 10/10/18 08:22 MCH 30 pg (28-32) 10/10/18 08:22 MCHC 34 % (32-34) 10/10/18 08:22 RDW 13.9 % (13.2-15.2) 10/10/18 08:22 Plt Count 278 K/mm3 (140-440) 10/10/18 08:22 Lymph % (Auto) 23.7 % (13.4-35.0) 10/10/18 08:22 [place] % (Auto) 7.2 % (0.0-7.3) 10/10/18 08:22 Eos % (Auto) 1.4 % (0.0-4.3) 10/10/18 08:22 Baso % (Auto) 0.8 % (0.0-1.8) 10/10/18 08:22 Lymph # 1.5 K/mm3 (1.2-5.4) 10/10/18 08:22 [place] # 0.4 K/mm3 (0.0-0.8) 10/10/18 08:22 Eos # 0.1 K/mm3 (0.0-0.4) 10/10/18 08:22 Baso # 0.0 K/mm3 (0.0-0.1) 10/10/18 08:22 Seg Neutrophils % 66.9 % (40.0-70.0) 10/10/18 08:22 Seg Neutrophils # 4.1 K/mm3 (1.8-7.7) 10/10/18 08:22 PT 11.9 Sec. (12.2-14.9) L 10/10/18 08:22 INR 0.84 (0.87-1.13) L 10/10/18 08:22 APTT 26.1 Sec. (24.2-36.6) 10/10/18 08:22 Sodium 143 mmol/L (137-145) 10/11/18 09:51 Potassium 4.3 mmol/L (3.6-5.0) D 10/11/18 09:51 Chloride 107.4 mmol/L (98-107) H 10/11/18 09:51 Carbon Dioxide 23 mmol/L (22-30) 10/11/18 09:51 Anion Gap 17 mmol/L 10/11/18 09:51 BUN 7 mg/dL (9-20) L 10/11/18 09:51 Creatinine 0.7 mg/dL (0.8-1.5) L 10/11/18 09:51 Estimated GFR > 60 ml/min 10/11/18 09:51 BUN/Creatinine Ratio 10 % 10/11/18 09:51 Glucose 113 mg/dL (75-100) H 10/11/18 09:51 Calcium 8.6 mg/dL (8.4-10.2) 10/11/18 09:51 Magnesium 2.20 mg/dL (1.7-2.3) 10/10/18 08:22 Total Bilirubin 0.80 mg/dL (0.1-1.2) 10/10/18 08:22 Direct Bilirubin < 0.2 mg/dL (0-0.2) 10/10/18 08:22 Indirect Bilirubin 0.6 mg/dL 10/10/18 08:22 AST 110 units/L (5-40) H 10/10/18 08:22 ALT 52 units/L (7-56) 10/10/18 08:22 Alkaline Phosphatase 68 units/L (35-129) 10/10/18 08:22 Total Creatine Kinase 275 units/L (55-170) H 10/14/18 06:36 CK-MB (CK-2) 24.2 ng/mL (0.0-4.0) H 10/10/18 08:22 CK-MB (CK-2) Rel Index 0.5 (0-4) 10/10/18 08:22 Troponin T < 0.010 ng/mL (0.00-0.029) 10/10/18 08:22 NT-Pro-B Natriuret Pep 83.40 pg/mL (0-450) 10/10/18 08:22 Total Protein 6.9 g/dL (6.3-8.2) 10/10/18 08:22 Albumin 4.2 g/dL (3.9-5) 10/10/18 08:22 Albumin/Globulin Ratio 1.6 % 10/10/18 08:22 Amylase 41 units/L (27-131) 10/08/18 13:12 Lipase 45 units/L (13-60) 10/08/18 13:12 TSH 1.010 mlU/mL (0.270-4.200) 10/10/18 08:22 Free T4 1.54 ng/dL (0.76-1.46) H 10/10/18 08:22 Urine Color [place] (Yellow) 10/07/18 20:15 Urine Turbidity Slightly-cloudy (Clear) 10/07/18 20:15 Urine pH 5.0 (5.0-7.0) 10/07/18 20:15 Ur Specific [place] 1.030 (1.003-1.030) 10/07/18 20:15 Urine Protein 30 mg/dl mg/dL (Negative) 10/07/18 20:15 Urine Glucose (UA) Neg mg/dL (Negative) 10/07/18 20:15 Urine Ketones Neg mg/dL (Negative) 10/07/18 20:15 Urine Blood Sm (Negative) 10/07/18 20:15 Urine Nitrite Neg (Negative) 10/07/18 20:15 Urine Bilirubin Neg (Negative) 10/07/18 20:15 Urine Urobilinogen 2.0 mg/dL (<2.0) 10/07/18 20:15 Ur Leukocyte Esterase Neg (Negative) 10/07/18 20:15 Urine WBC (Auto) 2.0 /HPF (0.0-6.0) 10/07/18 20:15 Urine RBC (Auto) 14.0 /HPF (0.0-6.0) 10/07/18 20:15 U Epithel Cells (Auto) < 1.0 /HPF (0-13.0) 10/07/18 20:15 Hyaline Casts 1 /LPF 10/07/18 20:15 Urine Mucus 2+ /HPF 10/07/18 20:15 Salicylates 7.7 mg/dL (2.8-20.0) 10/07/18 Unknown Urine Opiates Screen Presumptive negative 10/07/18 20:15 Urine Methadone Screen Presumptive negative 10/07/18 20:15 Acetaminophen < 5.0 ug/mL (10.0-30.0) L 10/10/18 08:22 Ur Barbiturates Screen Presumptive negative 10/07/18 20:15 Valproic Acid < 2.8 ug/mL (50-100) L 10/08/18 13:12 Ur Phencyclidine Scrn Presumptive negative 10/07/18 20:15 Ur Amphetamines Screen Presumptive negative 10/07/18 20:15 U Benzodiazepines Scrn Presumptive negative 10/07/18 20:15 Urine Cocaine Screen Presumptive positive 10/07/18 20:15 U Marijuana (THC) Screen Presumptive positive 10/07/18 20:15 Drugs of Abuse Note Disclamer 10/07/18 20:15 Plasma/Serum Alcohol < 0.01 % (0-0.07) 10/07/18 18:19 Nutrition/Malnutrition Assess - Dietary Evaluation Nutrition/Malnutrition Findings: Nutrition Notes Start: 10/11/18 15:31 Freq: Status: Active Protocol: Document 10/13/18 12:32 ER (Rec: 10/13/18 12:36 ER [id number]) Co-Sign 10/13/18 12:32 LP Nutrition Notes Initial or Follow up Brief Note Current Diagnosis Hypertension Other Pertinent Diagnosis Polysubstance abuse, Bipolar, Schizophrenia, hyperthyroidism , DJD Current Diet Regular Labs/Tests Reviewed Pertinent Medications Reviewed Height 6 ft Weight 146 kg [place] Body Weight (kg) 80.90 BMI 43.6 Subjective/Other Information Pt. asking for doctor in hallway. Calmed pt. down and walked pt. back to room. Pt. denies any N/V/D/C or chewing/ swallowing difficulties. Pt. stated he is eating 100% of meals and that he "is a big mina and know how much food he needs to eat." Nutrition Intervention Revisit per MD consult or patient Sign Off request:
[2018-10-14] MEDS: HABITROL TD SCH ×2 (09:34→19:29)
[2018-10-14] MEDS: PEPCID PO SCH ×2 (09:35→22:16)
[2018-10-14] MEDS: CATAPRES PO SCH (09:35)
[2018-10-14] MEDS: SODIUM CHLORIDE FLUSH SYRINGE 10 ML IV SCH ×2 (09:36→22:00)
--- NOTE | 2018-10-14 12:03 | Progress Note ---
Subjective - Reason for Consult Consult date: 10/14/18 Reason for consult: Psychiatry Follow-up - Chief Complaint Chief complaint: "What do you want" 38-year-old male presents to the emergency department via police from his home for a mental health evaluation. Today the patient is calm, but tangent during the assessment. He continue to be hyper samaritan referencing "God" throughout the interview. His answers to questions are not logical. He appears to be responding to some type of stimuli. He denies SI/Hi's and VH's. He would not confirm or deny AH's. Mental Status Exam - Vital signs Last Vital Signs Temp 98.7 F 10/13/18 14:00 Pulse 99 H 10/14/18 09:35 Resp 18 10/13/18 14:00 BP 159/92 10/14/18 09:35 Pulse Ox 96 10/13/18 14:07 - Exam Narrative exam: MSE: Appearance: calm Behavior: regular eye contact Speech: hyper verbal Mood: labile Affect: congruent to mood Thought Process: tangential Thought Content: denies SI/HI's and VH's, delusional, hyper samaritan Motor Activity: sitting up in bed Cognition: A/O x 3 Insight: poor Judgment: poor Assessment and Plan Impression: Unspecified Mood DO with psy features. Substance Use DO (cocaine). Cannabis Use DO. Today the patient is irritable and disorganized during the assessment. DDx: Bipolar DO with psychosis, Schizoaffective DO, Substance Induced Mood/Psychotic DO, R/O Anxiety DO. Recommendation/Plan: The patient's 1013 was extended. Continue Klonopin 0.5 mg PO BID for anxiety and Zyprexa 5 mg PO BID for psychosis/mood. Attempted to discuss possible metabolic side effects of Zyprexa with the patient. Dispo: The patient was referred to inpatient psy services. Will staff with Dr Shea.
[2018-10-15] MEDS: LIDODERM 5% TD SCH ×2 (00:38→21:36)
[2018-10-15] MEDS: ATIVAN IV PRN ×4 (04:19→21:34)
[2018-10-15] MEDS: TYLENOL PO PRN ×2 (04:24→16:36)
--- NOTE | 2018-10-15 08:26 | Progress Note ---
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 and quiet today --Polysubstance abuse; no withdrawal symptoms, patient needs drug rehabilitation outpatient --Tobacco use; smoking cessation advised, nicotine patch as needed --Bipolar disorder; management per psychiatric, --DVT prophylaxis; SCDs -- 1013 Disposition per psych, possible transfer to inpatient psych facility for further evaluation and management Patient is medically cleared for discharge History Interval history: Patient feels better no new complaints Alert awake oriented 3 vital signs reviewed Patient wants to go home Hospitalist Physical - Constitutional Vitals: Temp Pulse Resp BP Pulse Ox 97.4 F L 75 19 106/58 95 10/15/18 06:30 10/15/18 06:30 10/14/18 22:40 10/15/18 06:30 10/14/18 22:40 General appearance: Present: no acute distress, obese, other (Nataliya.) - EENT Eyes: Present: PERRL, EOM intact - Neck Neck: Present: supple, normal ROM - Respiratory Respiratory effort: normal Respiratory: bilateral: diminished, negative: rales, rhonchi, wheezing - Cardiovascular Rhythm: regular Heart Sounds: Present: S1 & S2 - Extremities Extremities: no ischemia, normal temperature - Abdominal General gastrointestinal: soft, non-tender, non-distended, normal bowel sounds - Integumentary Integumentary: Present: clear, warm - Psychiatric Psychiatric: appropriate mood/affect, cooperative - Neurologic Neurologic: CNII-XII intact, moves all extremities Results - Labs CBC & Chem 7: 10/10/18 08:22 10/11/18 09:51 Labs: Laboratory Last Values WBC 6.1 K/mm3 (4.5-11.0) 10/10/18 08:22 RBC 4.89 M/mm3 (3.65-5.03) 10/10/18 08:22 Hgb 14.5 gm/dl (11.8-15.2) 10/10/18 08:22 Hct 42.3 % (35.5-45.6) D 10/10/18 08:22 MCV 87 fl (84-94) 10/10/18 08:22 MCH 30 pg (28-32) 10/10/18 08:22 MCHC 34 % (32-34) 10/10/18 08:22 RDW 13.9 % (13.2-15.2) 10/10/18 08:22 Plt Count 278 K/mm3 (140-440) 10/10/18 08:22 Lymph % (Auto) 23.7 % (13.4-35.0) 10/10/18 08:22 [place] % (Auto) 7.2 % (0.0-7.3) 10/10/18 08:22 Eos % (Auto) 1.4 % (0.0-4.3) 10/10/18 08:22 Baso % (Auto) 0.8 % (0.0-1.8) 10/10/18 08:22 Lymph # 1.5 K/mm3 (1.2-5.4) 10/10/18 08:22 [place] # 0.4 K/mm3 (0.0-0.8) 10/10/18 08:22 Eos # 0.1 K/mm3 (0.0-0.4) 10/10/18 08:22 Baso # 0.0 K/mm3 (0.0-0.1) 10/10/18 08:22 Seg Neutrophils % 66.9 % (40.0-70.0) 10/10/18 08:22 Seg Neutrophils # 4.1 K/mm3 (1.8-7.7) 10/10/18 08:22 PT 11.9 Sec. (12.2-14.9) L 10/10/18 08:22 INR 0.84 (0.87-1.13) L 10/10/18 08:22 APTT 26.1 Sec. (24.2-36.6) 10/10/18 08:22 Sodium 143 mmol/L (137-145) 10/11/18 09:51 Potassium 4.3 mmol/L (3.6-5.0) D 10/11/18 09:51 Chloride 107.4 mmol/L (98-107) H 10/11/18 09:51 Carbon Dioxide 23 mmol/L (22-30) 10/11/18 09:51 Anion Gap 17 mmol/L 10/11/18 09:51 BUN 7 mg/dL (9-20) L 10/11/18 09:51 Creatinine 0.7 mg/dL (0.8-1.5) L 10/11/18 09:51 Estimated GFR > 60 ml/min 10/11/18 09:51 BUN/Creatinine Ratio 10 % 10/11/18 09:51 Glucose 113 mg/dL (75-100) H 10/11/18 09:51 Calcium 8.6 mg/dL (8.4-10.2) 10/11/18 09:51 Magnesium 2.20 mg/dL (1.7-2.3) 10/10/18 08:22 Total Bilirubin 0.80 mg/dL (0.1-1.2) 10/10/18 08:22 Direct Bilirubin < 0.2 mg/dL (0-0.2) 10/10/18 08:22 Indirect Bilirubin 0.6 mg/dL 10/10/18 08:22 AST 110 units/L (5-40) H 10/10/18 08:22 ALT 52 units/L (7-56) 10/10/18 08:22 Alkaline Phosphatase 68 units/L (35-129) 10/10/18 08:22 Total Creatine Kinase 275 units/L (55-170) H 10/14/18 06:36 CK-MB (CK-2) 24.2 ng/mL (0.0-4.0) H 10/10/18 08:22 CK-MB (CK-2) Rel Index 0.5 (0-4) 10/10/18 08:22 Troponin T < 0.010 ng/mL (0.00-0.029) 10/10/18 08:22 NT-Pro-B Natriuret Pep 83.40 pg/mL (0-450) 10/10/18 08:22 Total Protein 6.9 g/dL (6.3-8.2) 10/10/18 08:22 Albumin 4.2 g/dL (3.9-5) 10/10/18 08:22 Albumin/Globulin Ratio 1.6 % 10/10/18 08:22 Amylase 41 units/L (27-131) 10/08/18 13:12 Lipase 45 units/L (13-60) 10/08/18 13:12 TSH 1.010 mlU/mL (0.270-4.200) 10/10/18 08:22 Free T4 1.54 ng/dL (0.76-1.46) H 10/10/18 08:22 Urine Color [place] (Yellow) 10/07/18 20:15 Urine Turbidity Slightly-cloudy (Clear) 10/07/18 20:15 Urine pH 5.0 (5.0-7.0) 10/07/18 20:15 Ur Specific [place] 1.030 (1.003-1.030) 10/07/18 20:15 Urine Protein 30 mg/dl mg/dL (Negative) 10/07/18 20:15 Urine Glucose (UA) Neg mg/dL (Negative) 10/07/18 20:15 Urine Ketones Neg mg/dL (Negative) 10/07/18 20:15 Urine Blood Sm (Negative) 10/07/18 20:15 Urine Nitrite Neg (Negative) 10/07/18 20:15 Urine Bilirubin Neg (Negative) 10/07/18 20:15 Urine Urobilinogen 2.0 mg/dL (<2.0) 10/07/18 20:15 Ur Leukocyte Esterase Neg (Negative) 10/07/18 20:15 Urine WBC (Auto) 2.0 /HPF (0.0-6.0) 10/07/18 20:15 Urine RBC (Auto) 14.0 /HPF (0.0-6.0) 10/07/18 20:15 U Epithel Cells (Auto) < 1.0 /HPF (0-13.0) 10/07/18 20:15 Hyaline Casts 1 /LPF 10/07/18 20:15 Urine Mucus 2+ /HPF 10/07/18 20:15 Salicylates 7.7 mg/dL (2.8-20.0) 10/07/18 Unknown Urine Opiates Screen Presumptive negative 10/07/18 20:15 Urine Methadone Screen Presumptive negative 10/07/18 20:15 Acetaminophen < 5.0 ug/mL (10.0-30.0) L 10/10/18 08:22 Ur Barbiturates Screen Presumptive negative 10/07/18 20:15 Valproic Acid < 2.8 ug/mL (50-100) L 10/08/18 13:12 Ur Phencyclidine Scrn Presumptive negative 02/07/19 20:15 Ur Amphetamines Screen Presumptive negative 10/07/18 20:15 U Benzodiazepines Scrn Presumptive negative 10/07/18 20:15 Urine Cocaine Screen Presumptive positive 10/07/18 20:15 U Marijuana (THC) Screen Presumptive positive 10/07/18 20:15 Drugs of Abuse Note Disclamer 10/07/18 20:15 Plasma/Serum Alcohol < 0.01 % (0-0.07) 10/07/18 18:19 Nutrition/Malnutrition Assess - Dietary Evaluation Nutrition/Malnutrition Findings: Nutrition Notes Start: 10/11/18 15:31 Freq: Status: Active Protocol: Document 10/13/18 12:32 ER (Rec: 10/13/18 12:36 ER [id number]) Co-Sign 10/13/18 12:32 LP Nutrition Notes Initial or Follow up Brief Note Current Diagnosis Hypertension Other Pertinent Diagnosis Polysubstance abuse, Bipolar, Schizophrenia, hyperthyroidism , DJD Current Diet Regular Labs/Tests Reviewed Pertinent Medications Reviewed Height 6 ft Weight 146 kg [place] Body Weight (kg) 80.90 BMI 43.6 Subjective/Other Information Pt. asking for doctor in hallway. Calmed pt. down and walked pt. back to room. Pt. denies any N/V/D/C or chewing/ swallowing difficulties. Pt. stated he is eating 100% of meals and that he "is a big mina and know how much food he needs to eat." Nutrition Intervention Revisit per MD consult or patient Sign Off request:
[2018-10-15] MEDS: HABITROL TD SCH ×2 (10:00→10:04)
[2018-10-15] MEDS: IBUPROFEN PO PRN ×2 (10:03→21:35)
[2018-10-15] MEDS: CATAPRES PO SCH (10:05)
[2018-10-15] MEDS: PEPCID PO SCH ×2 (10:05→21:35)
[2018-10-15] MEDS: SODIUM CHLORIDE FLUSH SYRINGE 10 ML IV SCH ×2 (10:06→21:36)
--- NOTE | 2018-10-15 13:27 | Progress Note ---
Subjective - Reason for Consult Consult date: 10/15/18 Reason for consult: Psychiatry Follow-up - Chief Complaint Chief complaint: "I am better" 38-year-old male presents to the emergency department via police from his home for a mental health evaluation. Today the patient is calm and cooperative during the assessment. He is more lucid today, but continues to be hyper bahai throughout the interview. He denies SI/Hi's and AVH's. He denies any side effects of his medications. Mental Status Exam - Vital signs Last Vital Signs Temp 98.2 F 10/15/18 13:10 Pulse 81 10/15/18 13:10 Resp 20 10/15/18 13:10 BP 106/58 10/15/18 13:10 Pulse Ox 96 10/15/18 13:10 - Exam Narrative exam: MSE: Appearance: calm, cooperative Behavior: regular eye contact Speech: regular rate and tone Mood: "okay" Affect: congruent to mood Thought Process: circumstantial Thought Content: denies SI/HI's and AVH's, delusional, hyper bahai Motor Activity: sitting up in bed Cognition: A/O x 3 Insight: variable Judgment: variable Assessment and Plan Impression: Unspecified Mood DO with psy features. Substance Use DO (cocaine). Cannabis Use DO. Today the patient is calm and cooperative during the assessment. DDx: Bipolar DO with psychosis, Schizoaffective DO, Substance Induced Mood/Psychotic DO, R/O Anxiety DO. Recommendation/Plan: Continue 1013, Klonopin 0.5 mg PO BID for anxiety, and Zyprexa 5 mg PO BID for psychosis/mood. Attempted to discuss possible metabolic side effects of Zyprexa with the patient. Dispo: The patient was referred to inpatient psy services. Will staff with Dr Shea.
[2018-10-16] MEDS: IBUPROFEN PO PRN ×2 (06:30→14:11)
[2018-10-16] MEDS: ATIVAN IV PRN (06:30)
--- NOTE | 2018-10-16 07:57 | Progress Note ---
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 --Polysubstance abuse; no withdrawal symptoms, patient needs drug rehabilitation outpatient --Tobacco use; smoking cessation advised, nicotine patch as needed --Bipolar disorder; management per psychiatric, --DVT prophylaxis; SCDs -- 1013 Disposition per psych, possible transfer to inpatient psych facility for further evaluation and management Patient is medically cleared for discharge History Interval history: Patient feels better no new complaints No Agitation and aggression Wants to go home Vital signs noted Hospitalist Physical - Constitutional Vitals: Temp Pulse Resp BP Pulse Ox 97.4 F L 77 18 133/71 97 10/16/18 06:22 10/16/18 06:22 10/16/18 06:22 10/16/18 06:22 10/16/18 06:22 General appearance: Present: no acute distress, obese, other (Nataliya.) - EENT Eyes: Present: PERRL, EOM intact - Neck Neck: Present: supple, normal ROM - Respiratory Respiratory effort: normal Respiratory: negative: rales, rhonchi, wheezing - Cardiovascular Rhythm: regular Heart Sounds: Present: S1 & S2 - Extremities Extremities: no ischemia, No edema - Abdominal General gastrointestinal: soft, non-tender, non-distended, normal bowel sounds - Integumentary Integumentary: Present: clear, warm - Psychiatric Psychiatric: appropriate mood/affect, cooperative - Neurologic Neurologic: CNII-XII intact, moves all extremities Results - Labs CBC & Chem 7: 10/10/18 08:22 10/11/18 09:51 Labs: Laboratory Last Values WBC 6.1 K/mm3 (4.5-11.0) 10/10/18 08:22 RBC 4.89 M/mm3 (3.65-5.03) 10/10/18 08:22 Hgb 14.5 gm/dl (11.8-15.2) 10/10/18 08:22 Hct 42.3 % (35.5-45.6) D 10/10/18 08:22 MCV 87 fl (84-94) 10/10/18 08:22 MCH 30 pg (28-32) 10/10/18 08:22 MCHC 34 % (32-34) 10/10/18 08:22 RDW 13.9 % (13.2-15.2) 10/10/18 08:22 Plt Count 278 K/mm3 (140-440) 10/10/18 08:22 Lymph % (Auto) 23.7 % (13.4-35.0) 10/10/18 08:22 [place] % (Auto) 7.2 % (0.0-7.3) 10/10/18 08:22 Eos % (Auto) 1.4 % (0.0-4.3) 10/10/18 08:22 Baso % (Auto) 0.8 % (0.0-1.8) 10/10/18 08:22 Lymph # 1.5 K/mm3 (1.2-5.4) 10/10/18 08:22 [place] # 0.4 K/mm3 (0.0-0.8) 10/10/18 08:22 Eos # 0.1 K/mm3 (0.0-0.4) 10/10/18 08:22 Baso # 0.0 K/mm3 (0.0-0.1) 10/10/18 08:22 Seg Neutrophils % 66.9 % (40.0-70.0) 10/10/18 08:22 Seg Neutrophils # 4.1 K/mm3 (1.8-7.7) 10/10/18 08:22 PT 11.9 Sec. (12.2-14.9) L 10/10/18 08:22 INR 0.84 (0.87-1.13) L 10/10/18 08:22 APTT 26.1 Sec. (24.2-36.6) 10/10/18 08:22 Sodium 143 mmol/L (137-145) 10/11/18 09:51 Potassium 4.3 mmol/L (3.6-5.0) D 10/11/18 09:51 Chloride 107.4 mmol/L (98-107) H 10/11/18 09:51 Carbon Dioxide 23 mmol/L (22-30) 10/11/18 09:51 Anion Gap 17 mmol/L 10/11/18 09:51 BUN 7 mg/dL (9-20) L 10/11/18 09:51 Creatinine 0.7 mg/dL (0.8-1.5) L 10/11/18 09:51 Estimated GFR > 60 ml/min 10/11/18 09:51 BUN/Creatinine Ratio 10 % 10/11/18 09:51 Glucose 113 mg/dL (75-100) H 10/11/18 09:51 Calcium 8.6 mg/dL (8.4-10.2) 10/11/18 09:51 Magnesium 2.20 mg/dL (1.7-2.3) 10/10/18 08:22 Total Bilirubin 0.80 mg/dL (0.1-1.2) 10/10/18 08:22 Direct Bilirubin < 0.2 mg/dL (0-0.2) 10/10/18 08:22 Indirect Bilirubin 0.6 mg/dL 10/10/18 08:22 AST 18 units/L (5-40) 10/15/18 13:52 ALT 52 units/L (7-56) 10/10/18 08:22 Alkaline Phosphatase 68 units/L (35-129) 10/10/18 08:22 Total Creatine Kinase 110 units/L (55-170) 10/16/18 06:04 CK-MB (CK-2) 24.2 ng/mL (0.0-4.0) H 10/10/18 08:22 CK-MB (CK-2) Rel Index 0.5 (0-4) 10/10/18 08:22 Troponin T < 0.010 ng/mL (0.00-0.029) 10/10/18 08:22 NT-Pro-B Natriuret Pep 83.40 pg/mL (0-450) 10/10/18 08:22 Total Protein 6.9 g/dL (6.3-8.2) 10/10/18 08:22 Albumin 4.2 g/dL (3.9-5) 10/10/18 08:22 Albumin/Globulin Ratio 1.6 % 10/10/18 08:22 Amylase 41 units/L (27-131) 10/08/18 13:12 Lipase 45 units/L (13-60) 10/08/18 13:12 TSH 1.010 mlU/mL (0.270-4.200) 10/10/18 08:22 Free T4 1.54 ng/dL (0.76-1.46) H 10/10/18 08:22 Urine Color [place] (Yellow) 10/07/18 20:15 Urine Turbidity Slightly-cloudy (Clear) 10/07/18 20:15 Urine pH 5.0 (5.0-7.0) 10/07/18 20:15 Ur Specific [place] 1.030 (1.003-1.030) 10/07/18 20:15 Urine Protein 30 mg/dl mg/dL (Negative) 10/07/18 20:15 Urine Glucose (UA) Neg mg/dL (Negative) 10/07/18 20:15 Urine Ketones Neg mg/dL (Negative) 10/07/18 20:15 Urine Blood Sm (Negative) 10/07/18 20:15 Urine Nitrite Neg (Negative) 10/07/18 20:15 Urine Bilirubin Neg (Negative) 10/07/18 20:15 Urine Urobilinogen 2.0 mg/dL (<2.0) 10/07/18 20:15 Ur Leukocyte Esterase Neg (Negative) 10/07/18 20:15 Urine WBC (Auto) 2.0 /HPF (0.0-6.0) 10/07/18 20:15 Urine RBC (Auto) 14.0 /HPF (0.0-6.0) 10/07/18 20:15 U Epithel Cells (Auto) < 1.0 /HPF (0-13.0) 10/07/18 20:15 Hyaline Casts 1 /LPF 10/07/18 20:15 Urine Mucus 2+ /HPF 10/07/18 20:15 Salicylates 7.7 mg/dL (2.8-20.0) 10/07/18 Unknown Urine Opiates Screen Presumptive negative 10/07/18 20:15 Urine Methadone Screen Presumptive negative 10/07/18 20:15 Acetaminophen < 5.0 ug/mL (10.0-30.0) L 10/10/18 08:22 Ur Barbiturates Screen Presumptive negative 10/07/18 20:15 Valproic Acid < 2.8 ug/mL (50-100) L 10/08/18 13:12 Ur Phencyclidine Scrn Presumptive negative 10/07/18 20:15 Ur Amphetamines Screen Presumptive negative 10/07/18 20:15 U Benzodiazepines Scrn Presumptive negative 10/07/18 20:15 Urine Cocaine Screen Presumptive positive 10/07/18 20:15 U Marijuana (THC) Screen Presumptive positive 10/07/18 20:15 Drugs of Abuse Note Disclamer 10/07/18 20:15 Plasma/Serum Alcohol < 0.01 % (0-0.07) 10/07/18 18:19 Nutrition/Malnutrition Assess - Dietary Evaluation Nutrition/Malnutrition Findings: Nutrition Notes Start: 10/11/18 15:31 Freq: Status: Active Protocol: Document 10/13/18 12:32 ER (Rec: 10/13/18 12:36 ER [id number]) Co-Sign 10/13/18 12:32 LP Nutrition Notes Initial or Follow up Brief Note Current Diagnosis Hypertension Other Pertinent Diagnosis Polysubstance abuse, Bipolar, Schizophrenia, hyperthyroidism , DJD Current Diet Regular Labs/Tests Reviewed Pertinent Medications Reviewed Height 6 ft Weight 146 kg [place] Body Weight (kg) 80.90 BMI 43.6 Subjective/Other Information Pt. asking for doctor in hallway. Calmed pt. down and walked pt. back to room. Pt. denies any N/V/D/C or chewing/ swallowing difficulties. Pt. stated he is eating 100% of meals and that he "is a big mina and know how much food he needs to eat." Nutrition Intervention Revisit per MD consult or patient Sign Off request:
[2018-10-16] MEDS: PEPCID PO SCH ×2 (09:37→21:20)
[2018-10-16] MEDS: CATAPRES PO SCH (09:38)
[2018-10-16] MEDS: SODIUM CHLORIDE FLUSH SYRINGE 10 ML IV SCH ×2 (11:03→21:21)
[2018-10-16] MEDS: HABITROL TD SCH ×2 (11:03→11:54)
[2018-10-16] MEDS: ATIVAN IM PRN (15:02)
[2018-10-16] MEDS: TYLENOL PO PRN (17:36)
--- NOTE | 2018-10-16 17:54 | Progress Note ---
Subjective - Reason for Consult Consult date: 10/16/18 Reason for consult: follow up - Chief Complaint Chief complaint: "I am better" 38-year-old male presents to the emergency department via police from his home for a mental health evaluation. Today the patient is calm and cooperative during the assessment. He wants to be discharged so he can find out where his emotional support animal is. He identifies that he could benefit from additional mental health treatment. [facility] He denies SI/Hi's and AVH's. He denies any side effects of his medications. Mental Status Exam - Vital signs Last Vital Signs Temp 97.4 F L 10/16/18 06:22 Pulse 77 10/16/18 06:22 Resp 18 10/16/18 06:22 BP 127/75 10/16/18 09:38 Pulse Ox 97 10/16/18 06:22 Assessment and Plan MSE: Appearance: calm, cooperative Behavior: regular eye contact Speech: regular rate and tone Mood: manic Affect: congruent to mood Thought Process: circumstantial Thought Content: denies SI/HI's and AVH's, hyper methodist Motor Activity: exaggerated arm gestures Cognition: A/O x 3 Insight: variable Judgment: variable Assessment and Plan Impression: Unspecified Mood DO with psy features. Substance Use DO (cocaine). Cannabis Use DO. Today the patient is calm and cooperative during the assessment. DDx: Bipolar DO with psychosis, r/o Schizoaffective DO, Substance Induced Mood/Psychotic DO, R/O Anxiety DO. Recommendation/Plan: Continue 1013, Klonopin 0.5 mg PO BID for anxiety, and Zyprexa 5 mg PO BID for psychosis/mood. repeat LFTs and start depakote if within normal limits. Dispo: The patient was referred to inpatient psy services. Will staff with Dr Shea.
[2018-10-16 20:55] LABS: Alanine Aminotransferase 27 units/L (7-56); Albumin 4.2 g/dL (3.9-5)
[2018-10-16] MEDS: LIDODERM 5% TD SCH ×2 (21:20→21:25)
[2018-10-16 21:23] LABS: Bilirubin,Direct < 0.2 mg/dL (0-0.2)
[2018-10-17] MEDS: IBUPROFEN PO PRN ×3 (04:29→23:23)
[2018-10-17] MEDS: ATIVAN IM PRN ×2 (06:36→14:51)
[2018-10-17] MEDS: CATAPRES PO SCH (09:25)
[2018-10-17] MEDS: TYLENOL PO PRN (09:26)
[2018-10-17] MEDS: PEPCID PO SCH ×2 (09:26→23:23)
[2018-10-17] MEDS: HABITROL TD SCH (09:26)
--- NOTE | 2018-10-17 10:01 | Progress Note ---
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 --Polysubstance abuse; no withdrawal symptoms, patient needs drug rehabilitation outpatient --Tobacco use; smoking cessation advised, nicotine patch as needed --Bipolar disorder; management per psychiatric, --DVT prophylaxis; SCDs -- 1013 Disposition per psych, possible transfer to inpatient psych facility for further evaluation and management Patient is medically cleared for discharge History Interval history: Patient seen and examined medical records reviewed No new events reported by the nursing staff Patient is medically cleared for discharge Awaiting psych placement No new complaints Vital signs reviewed Hospitalist Physical - Constitutional Vitals: Temp Pulse Resp BP Pulse Ox 97.4 F L 89 20 145/84 95 10/17/18 05:55 10/17/18 09:25 10/17/18 05:55 10/17/18 09:25 10/17/18 05:55 General appearance: Present: no acute distress, well-nourished, obese - EENT Eyes: Present: PERRL, EOM intact - Neck Neck: Present: supple, normal ROM - Respiratory Respiratory effort: normal Respiratory: negative: rales, rhonchi, wheezing - Cardiovascular Rhythm: regular Heart Sounds: Present: S1 & S2 - Extremities Extremities: no ischemia, No edema - Abdominal General gastrointestinal: soft, non-tender - Integumentary Integumentary: Present: clear, warm - Psychiatric Psychiatric: appropriate mood/affect, cooperative - Neurologic Neurologic: moves all extremities Results - Labs CBC & Chem 7: 10/10/18 08:22 10/11/18 09:51 Labs: Laboratory Last Values WBC 6.1 K/mm3 (4.5-11.0) 10/10/18 08:22 RBC 4.89 M/mm3 (3.65-5.03) 10/10/18 08:22 Hgb 14.5 gm/dl (11.8-15.2) 10/10/18 08:22 Hct 42.3 % (35.5-45.6) D 10/10/18 08:22 MCV 87 fl (84-94) 10/10/18 08:22 MCH 30 pg (28-32) 10/10/18 08:22 MCHC 34 % (32-34) 10/10/18 08:22 RDW 13.9 % (13.2-15.2) 10/10/18 08:22 Plt Count 278 K/mm3 (140-440) 10/10/18 08:22 Lymph % (Auto) 23.7 % (13.4-35.0) 10/10/18 08:22 Angelina % (Auto) 7.2 % (0.0-7.3) 10/10/18 08:22 Eos % (Auto) 1.4 % (0.0-4.3) 10/10/18 08:22 Baso % (Auto) 0.8 % (0.0-1.8) 10/10/18 08:22 Lymph # 1.5 K/mm3 (1.2-5.4) 10/10/18 08:22 [place] # 0.4 K/mm3 (0.0-0.8) 10/10/18 08:22 Eos # 0.1 K/mm3 (0.0-0.4) 10/10/18 08:22 Baso # 0.0 K/mm3 (0.0-0.1) 10/10/18 08:22 Seg Neutrophils % 66.9 % (40.0-70.0) 10/10/18 08:22 Seg Neutrophils # 4.1 K/mm3 (1.8-7.7) 10/10/18 08:22 PT 11.9 Sec. (12.2-14.9) L 10/10/18 08:22 INR 0.84 (0.87-1.13) L 10/10/18 08:22 APTT 26.1 Sec. (24.2-36.6) 10/10/18 08:22 Sodium 143 mmol/L (137-145) 10/11/18 09:51 Potassium 4.3 mmol/L (3.6-5.0) D 10/11/18 09:51 Chloride 107.4 mmol/L (98-107) H 10/11/18 09:51 Carbon Dioxide 23 mmol/L (22-30) 10/11/18 09:51 Anion Gap 17 mmol/L 10/11/18 09:51 BUN 7 mg/dL (9-20) L 10/11/18 09:51 Creatinine 0.7 mg/dL (0.8-1.5) L 10/11/18 09:51 Estimated GFR > 60 ml/min 10/11/18 09:51 BUN/Creatinine Ratio 10 % 10/11/18 09:51 Glucose 113 mg/dL (75-100) H 10/11/18 09:51 Calcium 8.6 mg/dL (8.4-10.2) 10/11/18 09:51 Magnesium 2.20 mg/dL (1.7-2.3) 10/10/18 08:22 Total Bilirubin 0.20 mg/dL (0.1-1.2) 10/16/18 19:36 Direct Bilirubin < 0.2 mg/dL (0-0.2) 10/16/18 19:36 Indirect Bilirubin 0.0 mg/dL 10/16/18 19:36 AST 20 units/L (5-40) 10/16/18 19:36 ALT 27 units/L (7-56) 10/16/18 19:36 Alkaline Phosphatase 57 units/L (35-129) 10/16/18 19:36 Total Creatine Kinase 110 units/L (55-170) 10/16/18 06:04 CK-MB (CK-2) 24.2 ng/mL (0.0-4.0) H 10/10/18 08:22 CK-MB (CK-2) Rel Index 0.5 (0-4) 10/10/18 08:22 Troponin T < 0.010 ng/mL (0.00-0.029) 10/10/18 08:22 NT-Pro-B Natriuret Pep 83.40 pg/mL (0-450) 10/10/18 08:22 Total Protein 6.4 g/dL (6.3-8.2) 10/16/18 19:36 Albumin 4.2 g/dL (3.9-5) 10/16/18 19:36 Albumin/Globulin Ratio 1.9 % 10/16/18 19:36 Amylase 41 units/L (27-131) 10/08/18 13:12 Lipase 45 units/L (13-60) 10/08/18 13:12 TSH 1.010 mlU/mL (0.270-4.200) 10/10/18 08:22 Free T4 1.54 ng/dL (0.76-1.46) H 10/10/18 08:22 Urine Color Jennifer (Yellow) 10/07/18 20:15 Urine Turbidity Slightly-cloudy (Clear) 10/07/18 20:15 Urine pH 5.0 (5.0-7.0) 10/07/18 20:15 Ur Specific [place] 1.030 (1.003-1.030) 10/07/18 20:15 Urine Protein 30 mg/dl mg/dL (Negative) 10/07/18 20:15 Urine Glucose (UA) Neg mg/dL (Negative) 10/07/18 20:15 Urine Ketones Neg mg/dL (Negative) 10/07/18 20:15 Urine Blood Sm (Negative) 10/07/18 20:15 Urine Nitrite Neg (Negative) 10/07/18 20:15 Urine Bilirubin Neg (Negative) 10/07/18 20:15 Urine Urobilinogen 2.0 mg/dL (<2.0) 10/07/18 20:15 Ur Leukocyte Esterase Neg (Negative) 10/07/18 20:15 Urine WBC (Auto) 2.0 /HPF (0.0-6.0) 10/07/18 20:15 Urine RBC (Auto) 14.0 /HPF (0.0-6.0) 10/07/18 20:15 U Epithel Cells (Auto) < 1.0 /HPF (0-13.0) 10/07/18 20:15 Hyaline Casts 1 /LPF 10/07/18 20:15 Urine Mucus 2+ /HPF 10/07/18 20:15 Salicylates 7.7 mg/dL (2.8-20.0) 10/07/18 Unknown Urine Opiates Screen Presumptive negative 10/07/18 20:15 Urine Methadone Screen Presumptive negative 10/07/18 20:15 Acetaminophen < 5.0 ug/mL (10.0-30.0) L 10/10/18 08:22 Ur Barbiturates Screen Presumptive negative 10/07/18 20:15 Valproic Acid < 2.8 ug/mL (50-100) L 10/08/18 13:12 Ur Phencyclidine Scrn Presumptive negative 10/07/18 20:15 Ur Amphetamines Screen Presumptive negative 10/07/18 20:15 U Benzodiazepines Scrn Presumptive negative 10/07/18 20:15 Urine Cocaine Screen Presumptive positive 10/07/18 20:15 U Marijuana (THC) Screen Presumptive positive 10/07/18 20:15 Drugs of Abuse Note Disclamer 10/07/18 20:15 Plasma/Serum Alcohol < 0.01 % (0-0.07) 10/07/18 18:19 Nutrition/Malnutrition Assess - Dietary Evaluation Nutrition/Malnutrition Findings: Nutrition Notes Start: 10/11/18 15:31 Freq: Status: Active Protocol: Document 10/13/18 12:32 ER (Rec: 10/13/18 12:36 ER [id number]) Co-Sign 10/13/18 12:32 LP Nutrition Notes Initial or Follow up Brief Note Current Diagnosis Hypertension Other Pertinent Diagnosis Polysubstance abuse, Bipolar, Schizophrenia, hyperthyroidism , DJD Current Diet Regular Labs/Tests Reviewed Pertinent Medications Reviewed Height 6 ft Weight 146 kg [place] Body Weight (kg) 80.90 BMI 43.6 Subjective/Other Information Pt. asking for doctor in hallway. Calmed pt. down and walked pt. back to room. Pt. denies any N/V/D/C or chewing/ swallowing difficulties. Pt. stated he is eating 100% of meals and that he "is a big mina and know how much food he needs to eat." Nutrition Intervention Revisit per MD consult or patient Sign Off request:
[2018-10-17] MEDS: SODIUM CHLORIDE FLUSH SYRINGE 10 ML IV SCH ×2 (10:12→22:27)
[2018-10-17] MEDS: LIDODERM 5% TD SCH (22:26)
--- NOTE | 2018-10-18 08:00 | Discharge Summary ---
Providers - Providers Date of Admission: 10/10/18 12:32 Date of discharge: 10/18/18 Attending physician: KIM ROBERT 10/10/18 13:04 Consult to Mental Health [CONS] Routine Reason For Exam: psychosis Place consult to:: psych Notified:: Phone number called:: [phone] Was contact made?: Yes If yes, spoke with:: raina Time called:: 18:40 Primary care physician: JESICA PINTO Hospitalization Reason for admission: Acute psychosis/rhabdomyolysis Condition: Stable Pertinent studies: CT head without contrast; no acute intracranial abnormality noted, paranasal sinus disease complete opacification of the frontal and maxillary sinuses Chest x-ray; no acute cardiopulmonary abnormality noted Hospital course: Morbidly obese 58-year-old male patient with significant history of polysubstance abuse ongoing tobacco use hypotension schizophrenia and bipolar was admitted tthrough the emergency room with acute psychotic symptoms. Patient was transported to the emergency room by law enforcement, has history of confusion had a supination and addressing agitated behavior. Patient was made 1013 in the ER, Admitted to the hospitalist service for further evaluation of severe rhabdomyolysis, Patient had elevated CK with preserved renal function, symptomatically managed with IV hydration input output monitoring, psych has evaluated and followed the patient throughout the hospital stay Optimized medications, patient had a safe dissected throughout the hospital stay, Few times needed to call the security to calm the patient Today he is comfortable, in quiet no agitation and aggression or psychotic behavior Vital signs stable, Physical examination unremarkable Hemodynamically and clinically stable at discharge and transfer to inpatient psych Discharge diagnosis; --Acute psychosis; Severe agitation and medication at the time of admission Psych optimize the medication, today patient is comfortable and 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, 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 --Rhabdomyolysis; CK levels improved from 4602 -1110 -400s-274 -110 --Polysubstance abuse; no withdrawal symptoms, patient needs drug rehabilitation outpatient --Tobacco use; smoking cessation advised, nicotine patch as needed --Bipolar disorder; management per psychiatric, --DVT prophylaxis; SCDs -- 1013 Patient is medically cleared for discharge Patient is 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 Hemodynamically and clinically stable at discharge and transfer Disposition: DC/TX-65 PSY HOSP/PSY UNIT Time spent for discharge: 35 min Core Measure Documentation - Palliative Care Palliative Care/ Comfort Measures: Not Applicable - Core Measures Any of the following diagnoses?: none Exam - Constitutional Vitals: Temp Pulse Resp BP Pulse Ox 97.5 F L 68 20 107/56 97 10/18/18 06:01 10/18/18 06:01 10/18/18 06:01 10/18/18 06:01 10/18/18 06:01 General appearance: Present: no acute distress, well-nourished, obese - EENT Eyes: Present: PERRL, EOM intact - Neck Neck: Present: supple, normal ROM - Respiratory Respiratory effort: normal Respiratory: bilateral: diminished, negative: rales, rhonchi, wheezing - Cardiovascular Rhythm: regular Heart Sounds: Present: S1 & S2 - Extremities Extremities: no ischemia, No edema Peripheral Pulses: within normal limits - Abdominal General gastrointestinal: Present: soft, non-tender, non-distended, normal bowel sounds - Integumentary Integumentary: Present: clear, warm - Musculoskeletal Musculoskeletal: strength equal bilaterally - Psychiatric Psychiatric: appropriate mood/affect, cooperative, other (agitated and aggressive at times) - Neurologic Neurologic: moves all extremities Plan Activity: advance as tolerated, other (1013) Diet: regular Additional Instructions: Transfer to in patient psych facility for further evaluation and management Follow up with: JESICA PINTO DO [Primary Care Provider] - 3-5 Days
[2018-10-18] MEDS: ATIVAN IM PRN (08:21)
[2018-10-18] MEDS: HABITROL TD SCH (09:17)
[2018-10-18] MEDS: PEPCID PO SCH (09:17)
[2018-10-18] MEDS: SODIUM CHLORIDE FLUSH SYRINGE 10 ML IV SCH (09:18)
[2018-10-18] MEDS: CATAPRES PO SCH ×2 (09:18→11:48)
[2018-10-18] MEDS: TYLENOL PO PRN (09:19)
[2018-10-18 11:49] VITALS: BP 146/91
== END 2018-10-18 11:55 | DRG 558 ==
LOC: ED 17:55 → EEVIPCON 17:55 → 3A 10-10 12:32
PROVIDERS: ADMIT Internal Medicine; ATTEND Internal Medicine
DX: M62.82 Rhabdomyolysis (principal); F23 Brief psychotic disorder; Z68.41 Body mass index [BMI] 40.0-44.9, adult; F19.20 Other psychoactive substance dependence, uncomplicated; F17.213 Nicotine dependence, cigarettes, with withdrawal; E66.01 Morbid (severe) obesity due to excess calories; I10 Essential (primary) hypertension; M19.90 Unspecified osteoarthritis, unspecified site; E05.90 Thyrotoxicosis, unspecified without thyrotoxic crisis or storm; F06.33 Mood disorder due to known physiological condition with manic features; F14.10 Cocaine abuse, uncomplicated; F12.90 Cannabis use, unspecified, uncomplicated; Z71.6 Tobacco abuse counseling; Z82.49 Family history of ischemic heart disease and other diseases of the circulatory system; Z79.899 Other long term (current) drug therapy
CPT/HCPCS: 36415; 70450; 71045; 80048; 80076; 80164; 80307; 80320; 81001; 82150; 82550; 82553; 83690; 83735; 83880; 84075; 84439; 84443; 84450; 84460; 84484; 85025; 85610; 85730; 93005; 93010; 96372; 96374; 99406; G0378; G0480; J1200; J2060; J2405; J3230; J3486; J7030

== ENCOUNTER 2018-10-18 13:34 | Emergency (ER) | payer SELFPAY ==
[2018-10-18] MEDS ORDERED: CATAPRES PO ONE (15:06)
[2018-10-18 15:40] LABS: Basophils % (Auto) 0.5 % (0.0-1.8); Eosinophils # (Auto) 0.2 K/mm3 (0.0-0.4); Eosinophils % (Auto) 2.1 % (0.0-4.3); Hematocrit 43.6 % (35.5-45.6); Hemoglobin 15.4 gm/dl (11.8-15.2); Lymphocytes # (Auto) 1.9 K/mm3 (1.2-5.4); Lymphocytes % (Auto) 22.8 % (13.4-35.0); Mean Corpuscular HGB Conc 35 % (32-34); Mean Corpuscular Volume 86 fl (84-94); Monocytes # (Auto) 0.4 K/mm3 (0.0-0.8); Monocytes % (Auto) 5.2 % (0.0-7.3); Platelet Count 349 K/mm3 (140-440); Red Cell Distribution Width 14.2 % (13.2-15.2)
[2018-10-18 15:55] LABS: INR 0.85 (0.87-1.13)
[2018-10-18 16:06] LABS: BUN/Creatinine Ratio 13; Blood Urea Nitrogen 10 mg/dL (9-20); Calcium 9.8 mg/dL (8.4-10.2); Hemolysis Index 16
[2018-10-18 16:18] LABS: Bilirubin,Urine NEG (Negative); Blood,Urine SM (Negative); Color,Urine Straw (Yellow); Protein,Urine <15 mg/dL mg/dL (Negative); Urobilinogen,Urine < 2.0 mg/dL (<2.0)
[2018-10-18 16:30] LABS: Free T4 (Free Thyroxine) 1.13 ng/dL (0.76-1.46)
[2018-10-18 16:42] LABS: Amphetamine Screen,Urine PRESUMPTIVE NEGATIVE; Benzodiazepines Screen,Urine PRESUMPTIVE NEGATIVE; Cannabinoid Screen,Urine PRESUMPTIVE NEGATIVE; Cocaine Screen,Urine PRESUMPTIVE NEGATIVE; Methadone Screen,Urine PRESUMPTIVE NEGATIVE; Opiate Screen,Urine PRESUMPTIVE NEGATIVE
--- NOTE | 2018-10-18 16:54 | Emergency Department Report ---
ED Psych HPI - General Chief Complaint: Psych Stated Complaint: 1013 Time Seen by Provider: 10/18/18 14:51 Source: patient, EMS Mode of arrival: Stretcher Limitations: No Limitations - History of Present Illness Initial Comments: 38-year-old male past medical history of bipolar disorder, schizophrenia, PTSD, and hallucinations presents to the hospital after his accepting mental health facility refused to take the patient. Patient was just discharged today after an admission here for psychosis and cocaine abuse with associated rhabdomyolysis. After failed attempt to transfer to facility he was sent back to the ER. Patient currently denies homicidal or suicidal ideation as well as hallucinations. He states that manic and has anxiety and chronic pain secondary to DJD. - Related Data Home Medications Medication Instructions Recorded Confirmed Last Taken cloNIDine [Catapres] 0.1 mg PO DAILY 10/07/18 10/07/18 Unknown Allergies Allergy/AdvReac Type Severity Reaction Status Date / Time haloperidol [From Haldol] Allergy Hives Verified 10/07/18 19:38 ED Review of Systems ROS: Stated complaint: 1013 Other details as noted in HPI Comment: All other systems reviewed and negative ED Past Medical Hx - Past Medical History Hx Hypertension: No Hx Psychiatric Treatment: Yes (Bi Polar, Schizophrenia, Hallucinations) Additional medical history: bulging discs, degenerative disc disease - Social History Smoking Status: Current Every Day Smoker Substance Use Type: None - Medications Home Medications: Home Medications Medication Instructions Recorded Confirmed Last Taken Type cloNIDine [Catapres] 0.1 mg PO DAILY 10/07/18 10/07/18 Unknown History ED Physical Exam - General Limitations: No Limitations - Other Other exam information: General: No limitations, patient is alert in no acute distress Head exam: Atraumatic, normocephalic Eyes exam: Normal appearance, pupils equal reactive to light, extraocular movements intact ENT: Moist mucous membrane, normal oropharynx Neck exam: Normal inspection, full range of motion, no meningismus nontender Respiratory exam: Clear to auscultation bilateral, no wheezes, rales, crackles Cardiovascular: Tachycardia and regular rhythm Abdomen: Soft, nondistended, and nontender, with normal bowel sounds, no rebound, or guarding Extremity: Full range of motion normal inspection no deformity Back: Normal Inspection, full range of motion, no tenderness Neurologic: Alert, oriented x3, cranial nerves intact, no motor or sensory deficit Psychiatric: normal affect, normal mood Skin: Warm, dry, intact ED Course Vital Signs 10/18/18 10/18/18 10/18/18 14:43 15:49 15:55 Temperature 98.1 F 98.6 F Pulse Rate 110 H 110 H 110 H Respiratory 20 20 Rate Blood Pressure 187/114 187/114 Blood Pressure 187/114 [Left] O2 Sat by Pulse 99 98 Oximetry 10/18/18 17:40 Temperature Pulse Rate 88 Respiratory 16 Rate Blood Pressure Blood Pressure 143/88 [Left] O2 Sat by Pulse 97 Oximetry ED Medical Decision Making - Lab Data Result diagrams: 10/18/18 15:27 10/18/18 15:27 Lab Results 10/18/18 10/18/18 10/18/18 Range/Units 15:27 15:27 15:27 WBC 8.3 (4.5-11.0) K/mm3 RBC 5.10 H (3.65-5.03) M/mm3 Hgb 15.4 H (11.8-15.2) gm/dl Hct 43.6 (35.5-45.6) % MCV 86 (84-94) fl MCH 30 (28-32) pg MCHC 35 H (32-34) % RDW 14.2 (13.2-15.2) % Plt Count 349 (140-440) K/mm3 Lymph % (Auto) 22.8 (13.4-35.0) % [place] % (Auto) 5.2 (0.0-7.3) % Eos % (Auto) 2.1 (0.0-4.3) % Baso % (Auto) 0.5 (0.0-1.8) % Lymph # 1.9 (1.2-5.4) K/mm3 [place] # 0.4 (0.0-0.8) K/mm3 Eos # 0.2 (0.0-0.4) K/mm3 Baso # 0.0 (0.0-0.1) K/mm3 Seg Neutrophils % 69.4 (40.0-70.0) % Seg Neutrophils # 5.8 (1.8-7.7) K/mm3 PT 12.1 L (12.2-14.9) Sec. INR 0.85 L (0.87-1.13) Sodium 143 (137-145) mmol/L Potassium 4.1 (3.6-5.0) mmol/L Chloride 102.8 (98-107) mmol/L Carbon Dioxide 25 (22-30) mmol/L Anion Gap 19 mmol/L BUN 10 (9-20) mg/dL Creatinine 0.8 (0.8-1.5) mg/dL Estimated GFR > 60 ml/min BUN/Creatinine Ratio 13 % Glucose 147 H (75-100) mg/dL Calcium 9.8 (8.4-10.2) mg/dL Total Creatine Kinase 497 H (55-170) units/L TSH (0.270-4.200) mlU/mL Free T4 (0.76-1.46) ng/dL Urine Color (Yellow) Urine Turbidity (Clear) Urine pH (5.0-7.0) Ur Specific [place] (1.003-1.030) Urine Protein (Negative) mg/dL Urine Glucose (UA) (Negative) mg/dL Urine Ketones (Negative) mg/dL Urine Blood (Negative) Urine Nitrite (Negative) Urine Bilirubin (Negative) Urine Urobilinogen (<2.0) mg/dL Ur Leukocyte Esterase (Negative) Urine WBC (Auto) (0.0-6.0) /HPF Urine RBC (Auto) (0.0-6.0) /HPF Urine Opiates Screen Urine Methadone Screen Ur Barbiturates Screen Ur Phencyclidine Scrn Ur Amphetamines Screen U Benzodiazepines Scrn Urine Cocaine Screen U Marijuana (THC) Screen Drugs of Abuse Note Plasma/Serum Alcohol (0-0.07) % 10/18/18 10/18/18 10/18/18 Range/Units 15:27 15:27 15:47 WBC (4.5-11.0) K/mm3 RBC (3.65-5.03) M/mm3 Hgb (11.8-15.2) gm/dl Hct (35.5-45.6) % MCV (84-94) fl MCH (28-32) pg MCHC (32-34) % RDW (13.2-15.2) % Plt Count (140-440) K/mm3 Lymph % (Auto) (13.4-35.0) % [place] % (Auto) (0.0-7.3) % Eos % (Auto) (0.0-4.3) % Baso % (Auto) (0.0-1.8) % Lymph # (1.2-5.4) K/mm3 [place] # (0.0-0.8) K/mm3 Eos # (0.0-0.4) K/mm3 Baso # (0.0-0.1) K/mm3 Seg Neutrophils % (40.0-70.0) % Seg Neutrophils # (1.8-7.7) K/mm3 PT (12.2-14.9) Sec. INR (0.87-1.13) Sodium (137-145) mmol/L Potassium (3.6-5.0) mmol/L Chloride (98-107) mmol/L Carbon Dioxide (22-30) mmol/L Anion Gap mmol/L BUN (9-20) mg/dL Creatinine (0.8-1.5) mg/dL Estimated GFR ml/min BUN/Creatinine Ratio % Glucose (75-100) mg/dL Calcium (8.4-10.2) mg/dL Total Creatine Kinase (55-170) units/L TSH 0.527 (0.270-4.200) mlU/mL Free T4 1.13 (0.76-1.46) ng/dL Urine Color [place] (Yellow) Urine Turbidity Clear (Clear) Urine pH 6.0 (5.0-7.0) Ur Specific [place] 1.009 (1.003-1.030) Urine Protein <15 mg/dl (Negative) mg/dL Urine Glucose (UA) Neg (Negative) mg/dL Urine Ketones Neg (Negative) mg/dL Urine Blood Sm (Negative) Urine Nitrite Neg (Negative) Urine Bilirubin Neg (Negative) Urine Urobilinogen < 2.0 (<2.0) mg/dL Ur Leukocyte Esterase Neg (Negative) Urine WBC (Auto) 0.0 (0.0-6.0) /HPF Urine RBC (Auto) 9.0 (0.0-6.0) /HPF Urine Opiates Screen Urine Methadone Screen Ur Barbiturates Screen Ur Phencyclidine Scrn Ur Amphetamines Screen U Benzodiazepines Scrn Urine Cocaine Screen U Marijuana (THC) Screen Drugs of Abuse Note Plasma/Serum Alcohol < 0.01 (0-0.07) % 10/18/18 Range/Units 15:47 WBC (4.5-11.0) K/mm3 RBC (3.65-5.03) M/mm3 Hgb (11.8-15.2) gm/dl Hct (35.5-45.6) % MCV (84-94) fl MCH (28-32) pg MCHC (32-34) % RDW (13.2-15.2) % Plt Count (140-440) K/mm3 Lymph % (Auto) (13.4-35.0) % [place] % (Auto) (0.0-7.3) % Eos % (Auto) (0.0-4.3) % Baso % (Auto) (0.0-1.8) % Lymph # (1.2-5.4) K/mm3 [place] # (0.0-0.8) K/mm3 Eos # (0.0-0.4) K/mm3 Baso # (0.0-0.1) K/mm3 Seg Neutrophils % (40.0-70.0) % Seg Neutrophils # (1.8-7.7) K/mm3 PT (12.2-14.9) Sec. INR (0.87-1.13) Sodium (137-145) mmol/L Potassium (3.6-5.0) mmol/L Chloride (98-107) mmol/L Carbon Dioxide (22-30) mmol/L Anion Gap mmol/L BUN (9-20) mg/dL Creatinine (0.8-1.5) mg/dL Estimated GFR ml/min BUN/Creatinine Ratio % Glucose (75-100) mg/dL Calcium (8.4-10.2) mg/dL Total Creatine Kinase (55-170) units/L TSH (0.270-4.200) mlU/mL Free T4 (0.76-1.46) ng/dL Urine Color (Yellow) Urine Turbidity (Clear) Urine pH (5.0-7.0) Ur Specific [place] (1.003-1.030) Urine Protein (Negative) mg/dL Urine Glucose (UA) (Negative) mg/dL Urine Ketones (Negative) mg/dL Urine Blood (Negative) Urine Nitrite (Negative) Urine Bilirubin (Negative) Urine Urobilinogen (<2.0) mg/dL Ur Leukocyte Esterase (Negative) Urine WBC (Auto) (0.0-6.0) /HPF Urine RBC (Auto) (0.0-6.0) /HPF Urine Opiates Screen Presumptive negative Urine Methadone Screen Presumptive negative Ur Barbiturates Screen Presumptive negative Ur Phencyclidine Scrn Presumptive negative Ur Amphetamines Screen Presumptive negative U Benzodiazepines Scrn Presumptive negative Urine Cocaine Screen Presumptive negative U Marijuana (THC) Screen Presumptive negative Drugs of Abuse Note Disclamer Plasma/Serum Alcohol (0-0.07) % - Medical Decision Making Patient clonidine and Klonopin for elevated blood pressure and tachycardia vitals improved repeat labs/ua/uds unremarkable pt is medically cleared klonopin and zyprexa bid will be continued. I am unsure if depakote was started prior to d/c as of 7pm [facility] is still not able to accept patient at this time. We are awaiting a transport time for transfer. - Differential Diagnosis psychosis, PTSD, bipolar Critical Care Time: No Critical care attestation.: If time is entered above; I have spent that time in minutes in the direct care of this critically ill patient, excluding procedure time. ED Disposition Clinical Impression: Cocaine abuse, Bipolar 1 disorder with moderate rick, Medical clearance for psychiatric admission Disposition: DC/TX-65 PSY HOSP/PSY UNIT Is pt being admited?: No Does the pt Need Aspirin: No Condition: Stable Time of Disposition: 17:40 (awaiting acceptance/transport)
[2018-10-18] MEDS ORDERED: IBUPROFEN PO ONE ×2 (21:30→22:08)
[2018-10-19] MEDS ORDERED: ATIVAN PO PRN (08:37)
[2018-10-19] MEDS ORDERED: TYLENOL PO ONE (09:39)
[2018-10-19] MEDS ORDERED: BENTYL IM ONE (09:39)
[2018-10-19] MEDS ORDERED: GEODON IM ONE (09:40)
[2018-10-19 10:19] VITALS: BP 136/97
== END 2018-10-19 11:37 ==
LOC: ED 13:34 → EEVIPCON 13:34 → ED 10-19 11:37
DX: F31.9 Bipolar disorder, unspecified (principal); F31.89 Other bipolar disorder; F14.10 Cocaine abuse, uncomplicated
CPT/HCPCS: 36415; 80048; 80307; 81001; 82550; 84439; 84443; 85025; 85610; 96372; 99285; G0480; J0500; J3486; 80320

== ENCOUNTER 2018-12-08 08:05 | Emergency (ER) | payer OTHER ==
[2018-12-08 09:22] LABS: Basophils # (Auto) 0.1 K/mm3 (0.0-0.1); Basophils % (Auto) 0.7 % (0.0-1.8); Eosinophils % (Auto) 0.6 % (0.0-4.3); Hematocrit 48.3 % (35.5-45.6); Hemoglobin 16.3 gm/dl (11.8-15.2); Lymphocytes # (Auto) 1.5 K/mm3 (1.2-5.4); Lymphocytes % (Auto) 17.2 % (13.4-35.0); Mean Corpuscular HGB Conc 34 % (32-34); Mean Corpuscular Volume 86 fl (84-94); Monocytes # (Auto) 0.7 K/mm3 (0.0-0.8); Monocytes % (Auto) 8.1 % (0.0-7.3); Platelet Count 376 K/mm3 (140-440); Red Cell Distribution Width 14.8 % (13.2-15.2)
--- NOTE | 2018-12-08 09:32 | Emergency Department Report ---
HPI - General Time Seen by Provider: 12/08/18 08:26 - HPI HPI: 48-year-old male presents to the emergency Department via PD for a mental health evaluation. Per the police report, the patient was "in route with a slash crossing the middle of the street in oncoming traffic while talking to and fighting himself." The patient is not very forthcoming at this time. He wi ll not answer most questions. He looks like he is about to give an answer but then just says "no" and occasionally asks to go home. He has been to this facility multiple times in the past. He has a past psychiatric history of bipolar disorder and schizophrenia. ED Past Medical Hx - Past Medical History Hx Hypertension: No Hx Psychiatric Treatment: Yes (Bi Polar, Schizophrenia, Hallucinations) Additional medical history: bulging discs, degenerative disc disease - Social History Smoking Status: Current Every Day Smoker Substance Use Type: None - Medications Home Medications: Home Medications Medication Instructions Recorded Confirmed Last Taken Type cloNIDine [Catapres] 0.1 mg PO DAILY 10/07/18 12/08/18 Unknown History ED Review of Systems ROS: Stated complaint: MH EVAL Other details as noted in HPI Comment: Unobtainable due to pts medical conditions Physical Exam - Physical Exam Physical Exam: GENERAL: The patient is well-developed well-nourished. HEENT: Normocephalic. Atraumatic. Patient has moist mucous membranes. EYES: Extraocular motions are intact. NECK: Supple. Trachea is midline. CHEST/LUNGS: Clear to auscultation. There is no respiratory distress noted. HEART/CARDIOVASCULAR: Regular. There is no tachycardia. There is no obvious murmur. ABDOMEN: Abdomen is soft, nontender. Patient has normal bowel sounds. There is no abdominal distention. SKIN: Skin is warm and dry. NEURO: The patient is awake, alert. The patient has normal speech. No focal or motor deficits seen. MUSCULOSKELETAL: There is no tenderness or deformity. There is no limitation range of motion. There is no evidence of acute injury. PSYCH: Patient keeps pacing around the room. He is either unable to or does not want to answer questions. ED Medical Decision Making - Lab Data Result diagrams: 12/08/18 09:11 12/08/18 09:11 - Medical Decision Making This patient has a known history of bipolar disorder and schizophrenia. He was allegedly found by the police wandering through incoming traffic while responding to internal stimuli. Since being in the emergency Department he also has been seen responding to internal stimuli. He appears slightly anxious and agitated, wandering around the room. He is not forthcoming with answers. He does talk, however, and does not appear to have any slurred or altered speech. He appears to be going through some acute psychosis. For this reason has been made a 1013. Labs thus far been unremarkable. We are awaiting urinalysis for a urine drug screen and to evaluate for UTI. However the urinalysis will not change the plan for the patient to receive inpatient involuntary admission. He has a urinary tract infection, antibiotics will be added. If the patient is positive for anything on the urine drug screen, he'll continue to be reevaluated by the psychiatric team. Patient is cleared for psychiatric admission. - Differential Diagnosis acute psychosis, schizophrenia, bipolar disorder, substance abuse Critical Care Time: No Critical care attestation.: If time is entered above; I have spent that time in minutes in the direct care of this critically ill patient, excluding procedure time. ED Disposition Clinical Impression: Acute psychosis Disposition: DC/TX-65 PSY HOSP/PSY UNIT Is pt being admited?: No Condition: Stable Referrals: [facility] [Other] - 3-5 Days Time of Disposition: 14:02
[2018-12-08 09:37] LABS: BUN/Creatinine Ratio 9; Blood Urea Nitrogen 9 mg/dL (9-20); Calcium 9.5 mg/dL (8.4-10.2); Hemolysis Index 14
[2018-12-08] MEDS ORDERED: GEODON IM ONE ×3 (11:26→22:27)
[2018-12-08] MEDS ORDERED: WATER FOR INJ (PF) ONE ×2 (11:59→15:10)
[2018-12-08] MEDS ORDERED: ATIVAN IM ONE (14:53)
[2018-12-08 20:56] LABS: Amphetamine Screen,Urine PRESUMPTIVE NEGATIVE; Benzodiazepines Screen,Urine PRESUMPTIVE NEGATIVE; Cannabinoid Screen,Urine PRESUMPTIVE NEGATIVE; Cocaine Screen,Urine PRESUMPTIVE NEGATIVE; Methadone Screen,Urine PRESUMPTIVE NEGATIVE; Opiate Screen,Urine PRESUMPTIVE NEGATIVE
[2018-12-08] MEDS ORDERED: ATIVAN ONE (22:27)
[2018-12-08] MEDS: GEODON IM PRN (22:45)
[2018-12-08] MEDS: ATIVAN IM PRN (22:45)
[2018-12-09 09:58] LABS: Bilirubin,Urine NEG (Negative); Blood,Urine SM (Negative); Color,Urine Amber (Yellow)
[2018-12-09 10:03] LABS: Mucus,Urine 3+ /HPF
[2018-12-09] MEDS ORDERED: WATER FOR INJ (PF) ONE (12:08)
--- NOTE | 2018-12-09 12:20 | Consultation ---
History of Present Illness - Reason for Consult Consult date: 12/09/18 Reason for consult: Mental Health Evaluation Requesting physician: MARJORIE NAVA - Chief Complaint Chief complaint: "I don;t know why I'm here" - History of Present Psychiatric Illness 48-year-old male who presented to the ER for bizarre behavior. This patient is known to me. Today the patient is calm, but disorganized during the assessment. The patient asked several questions about he he ended up in the ER, his answers were not logical. he speak about taoist content throughout the interview. He pauses often before he will attempt to answer a questions, possibly responding to some type of stimuli. At this time, the patient is a poor historian, No gestures of SI/HI's. Medications and Allergies Allergies Allergy/AdvReac Type Severity Reaction Status Date / Time haloperidol [From Haldol] Allergy Hives Verified 10/07/18 19:38 Home Medications Medication Instructions Recorded Confirmed Last Taken Type cloNIDine [Catapres] 0.1 mg PO DAILY 10/07/18 12/08/18 Unknown History Active Meds: Active Medications Lorazepam (Ativan) 2 mg IM Q8H PRN PRN Reason: Agitation Stop: 12/11/18 21:44 Last Admin: 12/08/18 22:45 Dose: 2 mg Documented by: Ziprasidone (Geodon) 20 mg IM Q12H PRN PRN Reason: Agitation Stop: 12/11/18 22:44 Last Admin: 12/08/18 22:45 Dose: 20 mg Documented by: Past psychiatric history - Past Medical History Past Medical History: No medical history Past Surgical History: No surgical history - past Psychiatric treatment and history psychiatric treatment history: Inpatient psy services in the past. Denies a fam psy hx. - Social History Social history: other (Possibly reside at senior care.) Mental Status Exam - Vital signs Last Vital Signs Temp 98.0 F 12/09/18 06:34 Pulse 90 12/09/18 06:34 Resp 16 12/09/18 06:34 BP 114/53 12/09/18 06:34 Pulse Ox 99 12/09/18 06:34 - Exam Narrative exam: MSE: Appearance: calm, malodorous Behavior: regular eye contact Speech: regular rate and tone Mood: "okay" Affect: congruent to mood Thought Process: disorganized Thought Content: denies SI/HI's and AVH's, hyper taoist Motor Activity: sitting up in bed Cognition: A/O x 3 Insight: poor Judgment: poor Results Result Diagrams: 12/08/18 09:11 12/08/18 09:11 Abnormal lab results 12/09/18 Range/Units 09:05 Ur Specific [place] 1.040 H (1.003-1.030) All other labs normal. Assessment and Plan Assessment and plan: Impression: Unspecified Psychosis. Today the patient is calm, but disorganized during the assessment. The patient is experiencing perceptual disturbances. DDx: Bipolar DO with psychosis, Schizoaffective DO Recommendation/Plan: Continue 1013 and start Zyprexa 5 mg PO HS for psychosis. Attempted to discuss possible metabolic side effects of Zyprexa with the patient. Dispo: The patient was referred to inpatient psy services. Will staff with Dr Radha Paredes.
[2018-12-09] MEDS: GEODON IM PRN (15:05)
[2018-12-09] MEDS: ATIVAN IM PRN (15:05)
--- NOTE | 2018-12-10 12:37 | Progress Note ---
Subjective - Reason for Consult Consult date: 12/10/18 Reason for consult: Psyhciatry Follow-up - Chief Complaint Chief complaint: "I feel nervous" 48-year-old male who presented to the ER for bizarre behavior. This patient is known to me. Today the patient is calm, but disorganized during the assessment. He was fidgety throughout the interview. He was asked several times about how he ended up in the ER, his answer to that question was not logical. He stated that he "ran out" of medication (Zyprexa) prior to coming to the ER. He denies SI/HI's and VH's. He stated that the voices are taking over him and he feel "nervous.". No indications of side effects of his medication. Mental Status Exam - Vital signs Last Vital Signs Temp 97.4 F L 12/10/18 08:11 Pulse 107 H 12/10/18 08:11 Resp 20 12/10/18 08:11 BP 140/87 12/10/18 08:11 Pulse Ox 95 12/10/18 08:11 - Exam Narrative exam: MSE: Appearance: calm, malodorous Behavior: regular eye contact Speech: regular rate and tone Mood: anxious Affect: congruent to mood Thought Process: disorganized Thought Content: denies SI/HI's and AVH's, hyper muslim Motor Activity: sitting up in bed Cognition: A/O x 3 Insight: poor Judgment: poor Assessment and Plan Impression: Unspecified Psychosis. Unspecified Anxiety DO. Today the patient is calm, but still disorganized during the assessment. The patient is experiencing perceptual disturbances. DDx: Bipolar DO with psychosis, Schizoaffective DO Recommendation/Plan: Continue 1013 and Zyprexa 5 mg PO HS for psychosis. Start Buspar 7.5 mg PO BID for anxiety. Attempted to discuss possible metabolic side effects of Zyprexa with the patient. Dispo: The patient was referred to inpatient psy services. Will staff with Dr Radha Paredes.
[2018-12-10] MEDS: BUSPAR PO SCH ×2 (12:57→22:12)
[2018-12-10] MEDS ORDERED: IBUPROFEN PO PRN (14:00)
[2018-12-10] MEDS: GEODON IM PRN (16:19)
[2018-12-10] MEDS: ATIVAN IM PRN (16:19)
[2018-12-11] MEDS ORDERED: ATIVAN PO PRN (09:26)
[2018-12-11] MEDS ORDERED: ATIVAN ONE ×2 (09:42→16:16)
[2018-12-11] MEDS ORDERED: ATIVAN PO ONE (09:46)
[2018-12-11] MEDS: BUSPAR PO SCH ×2 (10:35→22:20)
[2018-12-11] MEDS: ATIVAN IM PRN (16:20)
--- NOTE | 2018-12-11 17:13 | Progress Note ---
Subjective - Reason for Consult Consult date: 12/11/18 Reason for consult: follow up - Chief Complaint Chief complaint: "I need to go home." 48-year-old male who presented to the ER for bizarre behavior. This patient is known to me. He was fidgety throughout the interview. He told the [facility] yesterday that he "ran out" of medication (Zyprexa) prior to coming to the ER. [facility]. He denies SI/HI's and VH's. Staff reports he has been trying to cause a fight all day. He is loud and has to be redirected. Mental Status Exam - Vital signs Last Vital Signs Temp 97.6 F 12/11/18 09:18 Pulse 78 12/11/18 09:18 Resp 18 12/11/18 09:18 BP 119/60 12/11/18 09:18 Pulse Ox 98 12/11/18 09:18 - Exam Narrative exam: SE: Appearance: wearing hospital provided scrubs Behavior: pacing and intense eye contact Speech: loud and pressured Mood: mixed manic Affect: congruent to mood Thought Process: tangential Thought Content: "I hyper anabaptist Motor Activity: fidgety Cognition: A/O x 3 Insight: poor Judgment: poor Assessment and Plan Impression: Unspecified Psychosis. Unspecified Anxiety DO. Today the patient is fidgety and perseverative about discharge, The patient is experiencing perc eptual disturbances. He has minimal insight. DDx: Bipolar DO with psychosis, Schizoaffective DO Recommendation/Plan: Continue 1013 and Zyprexa 5 mg PO HS for psychosis. Start Buspar 7.5 mg PO BID for anxiety. Dispo: The patient was referred to inpatient psy services. Will staff with Dr Radha Paredes.
[2018-12-12] MEDS: BUSPAR PO SCH (11:02)
--- NOTE | 2018-12-12 13:32 | Progress Note ---
Subjective - Reason for Consult Consult date: 12/12/18 Reason for consult: Psychiatric Follow-up Evaluation - Chief Complaint Chief complaint: "I'm fine" Patient is a 48-year-old male who presented to the ER for bizarre behavior. This patient is known to me. Patient is cooperative and anxious during the assessment. He states, " I reached out for Spiritism support. Doing God's work isn't always easy." Patient thought process is tangential. He reports appropriate sleep and appetite. Thoughts appears delusional. He denies SI/HI's and A/VH's. Mental Status Exam - Vital signs Last Vital Signs Temp 97.5 F L 12/12/18 08:32 Pulse 83 12/12/18 08:32 Resp 16 12/12/18 08:32 BP 122/96 12/12/18 08:32 Pulse Ox 95 12/12/18 08:32 - Exam Narrative exam: Mental Status Exam Appearance: calm, malodorous Behavior: regular eye contact Speech: regular rate and tone Mood: anxious; " I'm fine" Affect: congruent to mood Thought Process: disorganized/bizarre Thought Content: denies SI/HI's and AVH's, delusional- hyper-caodaism Motor Activity: ambulatory Cognition: A/O x 3 Insight: poor Judgment: poor Assessment and Plan Impression: Unspecified Psychosis. Unspecified Anxiety DO. Today the patient is cooperative but anxious during the assessment. Patient perceptual disturbances are decreasing. He continues to be hyper-caodaism. DDx: Bipolar DO with psychosis, Schizoaffective DO Recommendation/Plan: 1. Continue 1013. 2. Increase Zyprexa 10 mg PO HS for psychosis, Buspar 10 mg PO BID for anxiety. Attempted to discuss possible metabolic side effects of Zyprexa with the patient. Disposition: The patient was referred to inpatient psychiatric services. Will staff with Dr. Radha Paredes.
[2018-12-12] MEDS ORDERED: BUSPAR PO SCH (16:56)
[2018-12-12 20:22] VITALS: BP 149/88
--- NOTE | 2018-12-20 11:47 | Consultation ---
History of Present Illness - Reason for Consult Consult date: 12/20/18 Reason for consult: Mental Health Evaluation - Chief Complaint Chief complaint: "I'm fine" Patient is a 48-year-old male who presented to the ER for bizarre behavior. This patient is known to me. Patient is cooperative and anxious during the assessment. He states, " I reached out for Sabianism support. Doing God's work isn't always easy." Patient thought process is tangential. He reports appropriate sleep and appetite. Thoughts appears delusional. He denies SI/HI's and A/VH's. Medications and Allergies Allergies Allergy/AdvReac Type Severity Reaction Status Date / Time haloperidol [From Haldol] Allergy Hives Verified 10/07/18 19:38 Home Medications Medication Instructions Recorded Confirmed Last Taken Type cloNIDine [Catapres] 0.1 mg PO DAILY 10/07/18 12/20/18 Unknown History Mental Status Exam - Vital signs Last Vital Signs Temp 98.7 F 12/12/18 20:00 Pulse 89 12/12/18 20:00 Resp 18 12/12/18 20:00 BP 149/88 12/12/18 20:00 Pulse Ox 94 12/12/18 20:00 Results Result Diagrams: 12/08/18 09:11 12/08/18 09:11 All other labs normal.
== END 2018-12-12 20:15 ==
LOC: ED 08:05 → EEVIPCON 08:05 → ED 12-12 20:15
DX: F23 Brief psychotic disorder (principal); F41.9 Anxiety disorder, unspecified; F31.9 Bipolar disorder, unspecified; F17.200 Nicotine dependence, unspecified, uncomplicated; Z88.8 Allergy status to other drugs, medicaments and biological substances
CPT/HCPCS: 36415; 80048; 80307; 81001; 85025; 96372; 99285; G0480; J2060; J3486; 80320

== ENCOUNTER 2018-12-19 19:54 | Emergency (ER) | payer OTHER ==
[2018-12-19 20:58] LABS: Basophils # (Auto) 0.1 K/mm3 (0.0-0.1); Basophils % (Auto) 0.5 % (0.0-1.8); Eosinophils # (Auto) 0.2 K/mm3 (0.0-0.4); Eosinophils % (Auto) 2.1 % (0.0-4.3); Lymphocytes # (Auto) 2.1 K/mm3 (1.2-5.4); Lymphocytes % (Auto) 21.2 % (13.4-35.0); Mean Corpuscular HGB Conc 36 % (32-34); Mean Corpuscular Volume 85 fl (84-94); Monocytes # (Auto) 0.8 K/mm3 (0.0-0.8); Monocytes % (Auto) 8.2 % (0.0-7.3); Platelet Count 377 K/mm3 (140-440); Red Blood Count 5.49 M/mm3 (3.65-5.03); Red Cell Distribution Width 14.8 % (13.2-15.2)
[2018-12-19 21:00] LABS: Hematocrit 46.6 % (35.5-45.6); Hemoglobin 16.7 gm/dl (11.8-15.2)
[2018-12-19 21:09] LABS: INR 0.93 (0.87-1.13)
[2018-12-19 21:29] LABS: BUN/Creatinine Ratio 6; Blood Urea Nitrogen 7 mg/dL (9-20); Hemolysis Index 7
[2018-12-19 21:41] LABS: Benzodiazepines Screen,Urine PRESUMPTIVE NEGATIVE; Cannabinoid Screen,Urine PRESUMPTIVE NEGATIVE; Cocaine Screen,Urine PRESUMPTIVE NEGATIVE; Methadone Screen,Urine PRESUMPTIVE NEGATIVE; Opiate Screen,Urine PRESUMPTIVE NEGATIVE
[2018-12-19 21:50] LABS: Bilirubin,Urine NEG (Negative); Blood,Urine MOD (Negative); Color,Urine Yellow (Yellow); Protein,Urine <15 mg/dL mg/dL (Negative)
--- NOTE | 2018-12-19 21:54 | XRay Report ---
PROCEDURE: Chest. TECHNIQUE: PA and lateral chest radiographs were obtained. HISTORY: Chest pain. COMPARISONS: Chest 10/10/2018. Dictation not available. FINDINGS: The heart and mediastinum appear normal. The lungs are clear and well expanded. There are no pleural effusions. The soft tissues and regional skeleton are unremarkable. IMPRESSION: Normal study. This document is electronically signed by Prem Moss MD., December 19 2018 09:52:26 PM ET
[2018-12-19 22:04] LABS: Amphetamine Screen,Urine PRESUMPTIVE POSITIVE
--- NOTE | 2018-12-19 23:09 | Emergency Department Report ---
ED Psych HPI - General Chief Complaint: Psych Stated Complaint: MH EVAL Time Seen by Provider: 12/19/18 21:16 Source: patient, police Mode of arrival: Ambulatory - History of Present Illness Initial Comments: Mr. Encinas is a 38 yo male with hx of bipolar disorder and polysubstance abuse who presents with auditory and visual hallucinations. He feels that demons are inside of him. He feels that liquid is pouring out of him. He denies recent drug use. However he did call 911. He was brought in by police department. He denies any pain. Denies suicidal or homicidal ideation. According to electronic medical record he has history of psychosis, cocaine abuse. MD Complaint: other (hallucinations) -: This evening Associated Psychiatric Symptoms: auditory hallucinations, visual hallucinations Quality: constant Improves With: none Worsens With: none Context: other (none reported) Associated Symptoms: denies other symptoms - Related Data Home Medications Medication Instructions Recorded Confirmed Last Taken cloNIDine [Catapres] 0.1 mg PO DAILY 10/07/18 12/08/18 Unknown Allergies Allergy/AdvReac Type Severity Reaction Status Date / Time haloperidol [From Haldol] Allergy Hives Verified 10/07/18 19:38 ED Review of Systems ROS: Stated complaint: MH EVAL Other details as noted in HPI Comment: All other systems reviewed and negative Constitutional: denies: fever, malaise Respiratory: denies: cough Cardiovascular: chest pain ED Past Medical Hx - Past Medical History Previous Medical History?: Yes Hx Hypertension: No Hx Psychiatric Treatment: Yes (Bi Polar, Schizophrenia, Hallucinations) Additional medical history: bulging discs, degenerative disc disease - Surgical History Past Surgical History?: No - Social History Smoking Status: Current Every Day Smoker Substance Use Type: Alcohol - Medications Home Medications: Home Medications Medication Instructions Recorded Confirmed Last Taken Type cloNIDine [Catapres] 0.1 mg PO DAILY 10/07/18 12/08/18 Unknown History ED Physical Exam - General Limitations: Other General appearance: alert, in no apparent distress, other (pleasant cooperative but restless fidgety) - Head Head exam: Present: atraumatic, normocephalic - Eye Eye exam: Present: normal appearance - ENT ENT exam: Present: mucous membranes moist - Neck Neck exam: Present: normal inspection, full ROM - Respiratory Respiratory exam: Present: normal lung sounds bilaterally. Absent: respiratory distress, wheezes, rales, rhonchi - Cardiovascular Cardiovascular Exam: Present: regular rate, normal rhythm, normal heart sounds. Absent: systolic murmur, diastolic murmur, rubs, gallop - GI/Abdominal GI/Abdominal exam: Present: soft, normal bowel sounds. Absent: distended, ten derness, guarding, rebound - Rectal Rectal exam: Present: deferred - Extremities Exam Extremities exam: Present: normal inspection - Back Exam Back exam: Present: normal inspection - Neurological Exam Neurological exam: Present: alert, oriented X3 - Psychiatric Psychiatric exam: Present: normal affect, normal mood, other (poor insight, appears to respond to internal stimuli) - Skin Skin exam: Present: warm, dry, intact, normal color. Absent: rash ED Course Vital Signs 12/19/18 12/19/18 20:03 21:52 Temperature 97.8 F Pulse Rate 68 115 H Respiratory 22 Rate Blood Pressure 114/85 [Left] O2 Sat by Pulse 98 Oximetry ED Medical Decision Making - Lab Data Result diagrams: 12/19/18 20:37 12/19/18 20:37 Laboratory Results - last 24 hr 12/19/18 12/19/18 12/19/18 20:37 20:37 20:37 WBC RBC Hgb Hct MCV MCH MCHC RDW Plt Count Lymph % (Auto) [place] % (Auto) Eos % (Auto) Baso % (Auto) Lymph # Eagle # Eos # Baso # Seg Neutrophils % Seg Neutrophils # PT INR APTT Sodium 135 L Potassium 3.6 Chloride 96.0 L Carbon Dioxide 21 L Anion Gap 22 BUN 7 L Creatinine 1.1 Estimated GFR > 60 BUN/Creatinine Ratio 6 Glucose 109 H Calcium 10.0 Troponin T Urine Color Urine Turbidity Urine pH Ur Specific [place] Urine Protein Urine Glucose (UA) Urine Ketones Urine Blood Urine Nitrite Urine Bilirubin Urine Urobilinogen Ur Leukocyte Esterase Urine WBC (Auto) Urine RBC (Auto) Salicylates < 0.3 L Urine Opiates Screen Urine Methadone Screen Acetaminophen < 5.0 L Ur Barbiturates Screen Ur Phencyclidine Scrn Ur Amphetamines Screen U Benzodiazepines Scrn Urine Cocaine Screen U Marijuana (THC) Screen Drugs of Abuse Note Plasma/Serum Alcohol 12/19/18 12/19/18 12/19/18 20:37 20:37 20:43 WBC 10.0 RBC 5.49 H Hgb 16.7 H Hct 46.6 H MCV 85 MCH 30 MCHC 36 H RDW 14.8 Plt Count 377 Lymph % (Auto) 21.2 Eagle % (Auto) 8.2 H Eos % (Auto) 2.1 Baso % (Auto) 0.5 Lymph # 2.1 Eagle # 0.8 Eos # 0.2 Baso # 0.1 Seg Neutrophils % 68.0 Seg Neutrophils # 6.8 PT 13.0 INR 0.93 APTT 26.0 Sodium Potassium Chloride Carbon Dioxide Anion Gap BUN Creatinine Estimated GFR BUN/Creatinine Ratio Glucose Calcium Troponin T Urine Color Urine Turbidity Urine pH Ur Specific [place] Urine Protein Urine Glucose (UA) Urine Ketones Urine Blood Urine Nitrite Urine Bilirubin Urine Urobilinogen Ur Leukocyte Esterase Urine WBC (Auto) Urine RBC (Auto) Salicylates Urine Opiates Screen Urine Methadone Screen Acetaminophen Ur Barbiturates Screen Ur Phencyclidine Scrn Ur Amphetamines Screen U Benzodiazepines Scrn Urine Cocaine Screen U Marijuana (THC) Screen Drugs of Abuse Note Plasma/Serum Alcohol < 0.01 12/19/18 12/19/18 12/19/18 20:43 21:15 21:15 WBC RBC Hgb Hct MCV MCH MCHC RDW Plt Count Lymph % (Auto) Eagle % (Auto) Eos % (Auto) Baso % (Auto) Lymph # Eagle # Eos # Baso # Seg Neutrophils % Seg Neutrophils # PT INR APTT Sodium Potassium Chloride Carbon Dioxide Anion Gap BUN Creatinine Estimated GFR BUN/Creatinine Ratio Glucose Calcium Troponin T < 0.010 Urine Color Yellow Urine Turbidity Clear Urine pH 6.0 Ur Specific [place] 1.012 Urine Protein <15 mg/dl Urine Glucose (UA) Neg Urine Ketones Tr Urine Blood Mod Urine Nitrite Neg Urine Bilirubin Neg Urine Urobilinogen 2.0 Ur Leukocyte Esterase Neg Urine WBC (Auto) 1.0 Urine RBC (Auto) 8.0 Salicylates Urine Opiates Screen Presumptive negative Urine Methadone Screen Presumptive negative Acetaminophen Ur Barbiturates Screen Presumptive negative Ur Phencyclidine Scrn Presumptive negative Ur Amphetamines Screen Presumptive positive U Benzodiazepines Scrn Presumptive negative Urine Cocaine Screen Presumptive negative U Marijuana (THC) Screen Presumptive negative Drugs of Abuse Note Disclamer Plasma/Serum Alcohol - EKG Data 12/19/18 23:06 EKG obtained 2258 Sinus tachycardia rate 100 beats per minute normal axis prolonged QT interval no ST elevation - Medical Decision Making Mr. Encinas has hx of bipolar disorder. I suspect drug-induced psychosis. UDS +amphetamine He is medically clear for psychiatric care. I have provided by mouth lorazepam for mild sedation. Placed on 1013 involuntary precautions for acute psychosis, inability to provide for his well-being Critical care attestation.: If time is entered above; I have spent that time in minutes in the direct care of this critically ill patient, excluding procedure time. ED Disposition Clinical Impression: Acute psychosis, Polysubstance (excluding opioids) dependence, History of bipolar disorder Disposition: DC/TX-65 PSY HOSP/PSY UNIT Is pt being admited?: No Does the pt Need Aspirin: No Condition: Stable Referrals: ZIA IBARRA MD [Primary Care Provider] - 3-5 Days
[2018-12-19] MEDS ORDERED: ATIVAN PO ONE (23:10)
[2018-12-20] MEDS ORDERED: CATAPRES PO SCH (10:00)
--- NOTE | 2018-12-20 11:51 | Consultation ---
History of Present Illness - Reason for Consult Consult date: 12/20/18 Reason for consult: Mental Health Evaluation Requesting physician: ABRAM MIRANDA - Chief Complaint Chief complaint: "it's the demons" - History of Present Psychiatric Illness 38 yo white male who presented to the ER with bizarre behavior. This patient is known to me. Today the patient is calm, but disorganized during the assessment. He stated something about "demons." He was asked to elaborate more about these demons, which he could not. He jump from topic to topic along with being hyper congregational throughout the interview. The patent had to be redirected several time to keep him on topic. Overall, the patient is poor historian. No gestures of SI/HI's. Medications and Allergies Allergies Allergy/AdvReac Type Severity Reaction Status Date / Time haloperidol [From Haldol] Allergy Hives Verified 10/07/18 19:38 Home Medications Medication Instructions Recorded Confirmed Last Taken Type cloNIDine [Catapres] 0.1 mg PO DAILY 10/07/18 12/20/18 Unknown History Active Meds: Active Medications Clonidine HCl (Catapres) 0.1 mg PO DAILY SHON Stop: 12/24/18 09:59 Last Admin: 12/20/18 11:43 Dose: Not Given Documented by: Past psychiatric history - Past Medical History Past Medical History: No medical history Past Surgical History: No surgical history - past Psychiatric treatment and history psychiatric treatment history: Several inpatient psy settings in the past. Denies a fam psy hx. - Social History Social history: other (Reside at a intermediate) Mental Status Exam - Vital signs Last Vital Signs Temp 97.9 F 12/20/18 08:28 Pulse 103 H 12/20/18 11:43 Resp 20 12/20/18 08:28 BP 128/96 12/20/18 11:43 Pulse Ox 97 12/20/18 08:28 - Exam Narrative exam: MSE: Appearance: calm Behavior: regular eye contact Speech: regular rate and tone Mood: labile Affect: congruent to mood Thought Process: disorganized Thought Content: denies SI/HI's and AVH's, hyper congregational Motor Activity: sitting up in bed Cognition: A/O x 3 Insight: poor Judgment: poor Results Result Diagrams: 12/19/18 20:37 12/19/18 20:37 Abnormal lab results 0412/19/18 12/19/18 Range/Units 20:37 20:37 20:37 RBC (3.65-5.03) M/mm3 Hgb (11.8-15.2) gm/dl Hct (35.5-45.6) % MCHC (32-34) % [place] % (Auto) (0.0-7.3) % Sodium 135 L (137-145) mmol/L Chloride 96.0 L (98-107) mmol/L Carbon Dioxide 21 L (22-30) mmol/L BUN 7 L (9-20) mg/dL Glucose 109 H (75-100) mg/dL Salicylates < 0.3 L (2.8-20.0) mg/dL Acetaminophen < 5.0 L (10.0-30.0) ug/mL 12/19/18 Range/Units 20:37 RBC 5.49 H (3.65-5.03) M/mm3 Hgb 16.7 H (11.8-15.2) gm/dl Hct 46.6 H (35.5-45.6) % MCHC 36 H (32-34) % [place] % (Auto) 8.2 H (0.0-7.3) % Sodium (137-145) mmol/L Chloride (98-107) mmol/L Carbon Dioxide (22-30) mmol/L BUN (9-20) mg/dL Glucose (75-100) mg/dL Salicylates (2.8-20.0) mg/dL Acetaminophen (10.0-30.0) ug/mL All other labs normal. Assessment and Plan Assessment and plan: Impression: Unspecified Psychosis. Substance Use DO (amphetamines). Today the patient is calm, but disorganized during the assessment. DDx: Bipolar DO with psychosis, Schizoaffective DO, Substance Induced Psychosis Recommendation/Plan: Continue 1013 and start Zyprexa 5 mg PO HS for psychosis. Attempted to discuss possible metabolic side effects of Zyprexa with the patient. Dispo: The patient was referred to inpatient psy services. Will staff with Dr Radha Paredes.
[2018-12-20 16:16] VITALS: BP 125/88
[2018-12-20] MEDS ORDERED: ATIVAN ONE (20:36)
== END 2018-12-20 20:55 ==
LOC: EEVIPCON 19:54 → ED 19:54
DX: F23 Brief psychotic disorder (principal); F31.9 Bipolar disorder, unspecified; F19.20 Other psychoactive substance dependence, uncomplicated; F17.200 Nicotine dependence, unspecified, uncomplicated; Z87.39 Personal history of other diseases of the musculoskeletal system and connective tissue; Z88.8 Allergy status to other drugs, medicaments and biological substances
CPT/HCPCS: 36415; 71046; 80048; 80307; 81001; 84484; 85025; 85610; 85730; 93005; 93010; 99285; G0480; 80320

== ENCOUNTER 2019-06-26 18:17 | Emergency (ER) | payer SELFPAY ==
[2019-06-26 20:05] LABS: BUN/Creatinine Ratio 7; Blood Urea Nitrogen 6 mg/dL (9-20); Calcium 9.1 mg/dL (8.4-10.2); Hemolysis Index 10
[2019-06-26 20:08] LABS: Basophils # (Auto) 0.1 K/mm3 (0.0-0.1); Basophils % (Auto) 0.7 % (0.0-1.8); Eosinophils # (Auto) 0.1 K/mm3 (0.0-0.4); Eosinophils % (Auto) 1.4 % (0.0-4.3); Hematocrit 42.5 % (35.5-45.6); Hemoglobin 14.5 gm/dl (11.8-15.2); Lymphocytes # (Auto) 2.4 K/mm3 (1.2-5.4); Lymphocytes % (Auto) 24.7 % (13.4-35.0); Mean Corpuscular HGB Conc 34 % (32-34); Mean Corpuscular Volume 88 fl (84-94); Monocytes # (Auto) 0.9 K/mm3 (0.0-0.8); Monocytes % (Auto) 9.6 % (0.0-7.3); Platelet Count 188 K/mm3 (140-440)
--- NOTE | 2019-06-26 21:12 | XRay Report ---
PORTABLE RIGHT FOOT 2 VIEWS INDICATION / CLINICAL INFORMATION: Right foot pain for weeks. COMPARISON: None available. FINDINGS: BONES / JOINT(S): No acute fracture or subluxation. There are mild degenerative changes involving the first metatarsophalangeal joint. There is a tiny spur at the insertion of the Achilles tendon on the calcaneus. SOFT TISSUES: No significant abnormality. ADDITIONAL FINDINGS: None. IMPRESSION: Mild degenerative changes without acute abnormality. Signer Name: Iván Calvo MD Signed: 06/26/2019 9:08 PM Workstation Name: [id number]
--- NOTE | 2019-06-26 21:21 | Emergency Department Report ---
ED Extremity Problem HPI - General Chief complaint: Psych Stated complaint: BACK/FOOT PAIN Time Seen by Provider: 06/26/19 20:21 Source: patient, EMS Mode of arrival: Ambulatory Limitations: No Limitations - History of Present Illness Initial comments: Patient reports bilateral foot pain. Denies trauma. Reports pain for weeks to months. Denies SI/HI -: Gradual, month(s) Location: left, right, other (foot) History of Same: Yes -: Yes arthralgia Radiation: none Severity scale (0 -10): 1 Quality: aching Consistency: constant Improves with: nothing Worsens with: nothing Associated Symptoms: arthralgias. denies: chest pain, shortness of breath, fever, myalgias, rash - Related Data Home Medications Medication Instructions Recorded Confirmed Last Taken cloNIDine [Catapres] 0.1 mg PO DAILY 10/07/18 12/20/18 Unknown Previous Rx's Medication Instructions Recorded Last Taken Type Ibuprofen [Motrin 400 MG tab] 400 mg PO Q6H PRN #14 tablet 06/26/19 Unknown Rx Allergies Allergy/AdvReac Type Severity Reaction Status Date / Time haloperidol [From Haldol] Allergy Hives Verified 10/07/18 19:38 ED Review of Systems ROS: Stated complaint: BACK/FOOT PAIN Other details as noted in HPI Other: GENERAL: No weight change, fatigue, fever, chills, or night sweats SKIN: No changes in skin or hair, no itching, no rashes, no jaundice HEAD: No trauma, headache, or visual changes EYES: No blurriness, tearing, itching, acute visual loss, conjunctival discoloration, or scleral icterus EARS: No hearing loss, tinnitus, vertigo, or earache NOSE: No rhinorrhea, stuffiness, sneezing, itching, or epistaxis MOUTH: No bleeding gums, hoarseness, sore throat, or swelling CARDIAC: No new murmur, chest pain, palpitations, dyspnea on exertion, orthopnea, PND, or edema RESPIRATORY: No shortness of breath, wheeze, cough, sputum production, hemoptysis, pneumonia, asthma, bronchitis, or emphysema GI: No change in appetite, nausea, vomiting, dysphagia, diarrhea, constipation, hematemesis, melena, hematochezia, or abdominal pain URINARY: No frequency, urgency, polyuria, dysuria, hematuria, or incontinence MUSCULOSKELETAL: Bilateral foot pain. No muscle weakness, joint stiffness, decrease in range of motion, redness, swelling NEUROLOGIC: No headache, syncope, loss of sensation, numbness, tingling, tremors, weakness, paralysis, seizures HEMATOLOGIC: No anemia, easy bruising, bleeding, petechiae, or purpura ENDOCRINE: No hot or cold intolerance, sweating, polyuria, polydipsia or, polyphagia no thyroid problems PSYCHIATRIC: No change in mood, no anxiety, no depression ED Past Medical Hx - Past Medical History Previous Medical History?: Yes Hx Hypertension: No Hx Psychiatric Treatment: Yes (Bi Polar, Schizophrenia, Hallucinations) Additional medical history: bulging discs, degenerative disc disease - Surgical History Past Surgical History?: No - Social History Smoking Status: Current Every Day Smoker Substance Use Type: Alcohol, Cocaine, Tranquilizers, Other - Medications Home Medications: Home Medications Medication Instructions Recorded Confirmed Last Taken Type cloNIDine [Catapres] 0.1 mg PO DAILY 10/07/18 12/20/18 Unknown History Ibuprofen [Motrin 400 MG tab] 400 mg PO Q6H PRN #14 tablet 06/26/19 Unknown Rx ED Physical Exam - General Limitations: No Limitations - Other Other exam information: GENERAL: Patient in no acute distress HEAD: Normocephalic, atraumatic EYES: PERRLA, EOM intact, no scleral icterus, no conjunctival hemorrhage, visual pa and acuity wnl NOSE: No tenderness, discharge, sinus tenderness MOUTH: No erythema, bleeding, exudate HEART: Regular rate and rhythm, no murmur, S1-S2 are auscultated, no edema, pulses are symmetric LUNGS: No respiratory distress. Bilateral breath sounds, No tachypnea, No retractions, No wheezing, rales, rhonchi ABDOMEN: Normal bowel sounds, abdomen soft, no tenderness, no rebound, no guarding, no distention, no masses, no CVA tenderness MUSCULOSKELETAL: Normal joint range of motion, no redness, no swelling, no tenderness NEUROLOGIC: GCS 15, Alert and Oriented x3, Cranial nerves intact, normal sensation, normal strength, no cerebellar deficit, NIHSS 0 PSYCHIATRIC: No homicidal or suicidal ideation, no anxiety, no depression, no hallucinations SKIN: Skin is warm and dry, no wounds, no rashes ED Course Vital Signs 06/26/19 06/26/19 06/26/19 18:55 19:55 21:27 Temperature 98.7 F 98.5 F 98.2 F Pulse Rate 104 H 96 H 82 Respiratory 20 16 16 Rate Blood Pressure 154/100 Blood Pressure 116/81 110/68 [Left] O2 Sat by Pulse 100 97 100 Oximetry ED Medical Decision Making - Lab Data Result diagrams: 06/26/19 Unknown 06/26/19 Unknown Laboratory Results - last 24 hr 06/26/19 06/26/19 06/26/19 Unknown Unknown Unknown WBC RBC Hgb Hct MCV MCH MCHC RDW Plt Count Lymph % (Auto) [place] % (Auto) Eos % (Auto) Baso % (Auto) Lymph # Levy # Eos # Baso # Seg Neutrophils % Seg Neutrophils # Sodium 139 Potassium 4.0 Chloride 101.8 Carbon Dioxide 23 Anion Gap 18 BUN 6 L Creatinine 0.9 Estimated GFR > 60 BUN/Creatinine Ratio 7 Glucose 94 Calcium 9.1 Salicylates < 0.3 L Acetaminophen < 5.0 L Plasma/Serum Alcohol 06/26/19 06/26/19 Unknown Unknown WBC 9.6 RBC 4.80 Hgb 14.5 Hct 42.5 MCV 88 MCH 30 MCHC 34 RDW 14.0 Plt Count 188 Lymph % (Auto) 24.7 [place] % (Auto) 9.6 H Eos % (Auto) 1.4 Baso % (Auto) 0.7 Lymph # 2.4 Levy # 0.9 H Eos # 0.1 Baso # 0.1 Seg Neutrophils % 63.6 Seg Neutrophils # 6.1 Sodium Potassium Chloride Carbon Dioxide Anion Gap BUN Creatinine Estimated GFR BUN/Creatinine Ratio Glucose Calcium Salicylates Acetaminophen Plasma/Serum Alcohol < 0.01 - Radiology Data Radiology results: report reviewed - Medical Decision Making Patient comfortable. Reports symptom improvement. Updated with results. Plan discharge with outpatient follow up. Return if any worsening. Critical care attestation.: If time is entered above; I have spent that time in minutes in the direct care of this critically ill patient, excluding procedure time. ED Disposition Clinical Impression: Foot pain, bilateral Disposition: DC-01 TO HOME OR SELFCARE Is pt being admited?: No Condition: Stable Instructions: Arthralgia (ED) Prescriptions: Ibuprofen [Motrin 400 MG tab] 400 mg PO Q6H PRN #14 tablet PRN Reason: pain Referrals: PRIMARY CARE, [Primary Care Provider] - 2-3 Days VITA STEPHENS MD [Staff Physician] - 2-3 Days Time of Disposition: 21:16
[2019-06-26 21:28] VITALS: BP 110/68
== END 2019-06-26 21:30 | disposition home or self-care (01) ==
LOC: ED 18:17
DX: M79.672 Pain in left foot (principal); M79.671 Pain in right foot; F25.0 Schizoaffective disorder, bipolar type; F17.200 Nicotine dependence, unspecified, uncomplicated; Z79.899 Other long term (current) drug therapy; Z88.8 Allergy status to other drugs, medicaments and biological substances
CPT/HCPCS: 36415; 80048; 80320; 85025; G0480